=== PATIENT | female | born 1980 | race Hispanic/Latino ===

== ENCOUNTER 2020-05-05 12:28 | Outpatient (CLI) | payer BC, SELFPAY ==
--- NOTE | ~2020-05-05 | XR_ITS ---
EXAMINATION: XR chest 2V EXAM DATE: 05/05/2020 12:49 INDICATION: Other chest pain. Prior history mid to left-sided chest pain. TECHNIQUE: Frontal and lateral projections of the chest obtained and reviewed. Comparison is made to prior examination from 06/24/2019. FINDINGS: The lungs are clear. There are no pleural effusions. The cardiomediastinal silhouette is within normal limits. There is no pneumothorax suspected. The bones and soft tissues are unremarkab le. IMPRESSION: Unremarkable chest x-ray exam. Reviewed, dictated and finalized at location A.
--- NOTE | 2020-05-05 13:09 | ECG_ITS ---
Measurements Intervals [place] Rate: 78 P: 16 CO: 133 QRS: 37 QRSD: 96 T: 30 QT: 379 QTc: 433 Interpretive Statements SINUS RHYTHM NONSPECIFIC T-WAVE ABNORMALITY- ANTERIOR LEADS BORDERLINE ECG Electronically Signed On 05-05-2020 13:32:24 CDT by Sb Clinton D.O.
== END 2020-05-05 12:29 | disposition home or self-care (01) ==
LOC: ANHIMG 12:33
PROVIDERS: PCP Family Medicine; Visit Provider Family Medicine
DX: R07.89 Other chest pain (principal); R94.31 Abnormal electrocardiogram [ECG] [EKG]
CPT/HCPCS: 71046; 93005

== ENCOUNTER 2020-05-28 10:58 | Outpatient (CLI) | payer BC, SELFPAY ==
--- NOTE | 2020-05-28 11:17 | EST_ITS ---
Patient Info Name: Aleshia Lundberg Age: 40 years : 1980 Gender: Female Ht: 62 in Wt: 198 lbs BSA: 2.03 m2 Exam Date: 05/28/2020 11:44 AM Exam Location: [facility] Patient Status: Outpatient Admit Date: 05/28/2020 Staff Ordering Physician: Jalil Davila MD Attending Provider: Jalil Davila MD Exercise Technologist: Rodolfo Edmondson RDCS, RT Exercise Physician: Sb Clinton DO Exam Type: CA stress test treadmill Study Info A treadmill exercise stress test was performed. Summary 1. 1. Negative [place] exercise stress test for ischemic ST changes by ECG criteria. 2. 2. Good functional capacity, achieving 12 METs of workload. 3. 3. Appropriate HR response to exercise. 4. 4. Appropriate HR recovery at 1 minute post exercise. 5. 5. No imaging with stress testing. 6. 6. Patient informed of the above results. Protocol: [place] Stress ECG Details Stage: REST Duration (min): 0 min : 43 sec Speed (mph): 0.0 Grade (%): 0 HR (bpm): 68 SBP (mmHg): 134 DBP (mmHg): 79 METS: --- Stage: REST Duration (min): 4 min : 53 sec Speed (mph): 0.0 Grade (%): 0 HR (bpm): 81 SBP (mmHg): 134 DBP (mmHg): 79 METS: --- Stage: STAGE 1 Duration (min): 1 min : 0 sec Speed (mph): 1.7 Grade (%): 10 HR (bpm): 99 SBP (mmHg): 134 DBP (mmHg): 79 METS: --- Stage: STAGE 1 Duration (min): 2 min : 0 sec Speed (mph): 1.7 Grade (%): 10 HR (bpm): 99 SBP (mmHg): 134 DBP (mmHg): 79 METS: --- Stage: STAGE 1 Duration (min): 3 min : 0 sec Speed (mph): 1.7 Grade (%): 10 HR (bpm): 102 SBP (mmHg): 139 DBP (mmHg): 79 METS: --- Stage: STAGE 2 Duration (min): 1 min : 0 sec Speed (mph): 2.5 Grade (%): 12 HR (bpm): 115 SBP (mmHg): 139 DBP (mmHg): 79 METS: --- Stage: STAGE 2 Duration (min): 2 min : 0 sec Speed (mph): 2.5 Grade (%): 12 HR (bpm): 119 SBP (mmHg): 147 DBP (mmHg): 79 METS: --- Stage: STAGE 2 Duration (min): 3 min : 0 sec Speed (mph): 2.5 Grade (%): 12 HR (bpm): 118 SBP (mmHg): 147 DBP (mmHg): 79 METS: --- Stage: STAGE 3 Duration (min): 1 min : 0 sec Speed (mph): 3.4 Grade (%): 14 HR (bpm): 136 SBP (mmHg): 166 DBP (mmHg): 82 METS: --- Stage: STAGE 3 Duration (min): 2 min : 0 sec Speed (mph): 3.4 Grade (%): 14 HR (bpm): 142 SBP (mmHg): 166 DBP (mmHg): 82 METS: --- Stage: STAGE 3 Duration (min): 3 min : 0 sec Speed (mph): 3.4 Grade (%): 14 HR (bpm): 148 SBP (mmHg): 166 DBP (mmHg): 85 METS: --- Stage: STAGE 4 Duration (min): 1 min : 0 sec Speed (mph): 4.2 Grade (%): 16 HR (bpm): 167 SBP (mmHg): 166 DBP (mmHg): 85 METS: --- Stage: STAGE 4 Duration (min): 1 min : 0 sec Speed (mph): 4.2 Grade (%): 16 HR (bpm):
== END 2020-05-28 10:59 | disposition home or self-care (01) ==
PROVIDERS: PCP Family Medicine; Visit Provider Family Medicine
DX: R07.89 Other chest pain (principal)
CPT/HCPCS: 93017

== ENCOUNTER → 2020-07-30 09:20 | Outpatient (CLI) | payer BC, SELFPAY ==
--- NOTE | ~2020-07-30 | CT_ITS ---
EXAMINATION: CT abdomen pelvis w con DATE: 07/30/2020 10:07 INDICATION: Ventral hernia without obstruction or gangrene TECHNIQUE: Computed tomography (CT) of the abdomen and pelvis was performed without intravenous contr ast. Automated exposure control and iterative reconstruction technique were employed. The dose-length product was 975.58 mGy-cm. COMPARISON: None FINDINGS: Lung bases are clear. Heart size is normal. No pericardial or pleural effusion. Small region of focal hepatic steatosis at the ligamentum teres. Gallbladder, spleen, pancreas and bilateral adrenal gland s are normal. Kidneys enhance symmetrically with no hydronephrosis. There is some early excretion of contrast within the bilateral renal collecting systems and beginning to accumulate in the normal uret ers. Bilateral renal cysts the larger on the left measuring 12 mm. Bladder is normal. T-shaped IUD in expected position within the fundus of the anteverted uterus. 2.0 cm corpus luteum cyst in the right ovary with thin enhancing and crenelated peripheral rim. Left ovary is unremarkable. Diastases of th e supraumbilical and infraumbilical abdominal wall extending 17 cm craniocaudally. There is superimpo sed very small fat-containing umbilical hernia. There are a few scattered sigmoid diverticula without adjacent inflammatory change to suggest diverticulitis. Small bowel and appendix are normal. No free intraperitoneal gas or fluid. No pathologically enlarged abdominal or pelvic lymphadenopathy. Mild u pper lumbar dextrocurvature. 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 IMPRESSION: 1. Ventral diastases with superimposed very small fat-containing umbilical hernia. 2. IUD in expected position within the anteverted uterus and likely partially collapsed 2 cm corpus l uteum cyst at the right ovary. Reviewed, dictated and finalized at location A. IMPRESSION: 1. Ventral diastases with superimposed very small fat-containing umbilical sandeep ia. 2. IUD in expected position within the anteverted uterus and likely partially c ollapsed 2 cm corpus luteum cyst at the right ovary.
== END ==
PROVIDERS: Visit Provider Surgery
DX: K43.9 Ventral hernia without obstruction or gangrene (principal); Z97.5 Presence of (intrauterine) contraceptive device
CPT/HCPCS: 74177; Q9967

== ENCOUNTER 2022-11-08 17:33 | Outpatient (CLI) | payer BC, SELFPAY ==
--- NOTE | ~2022-11-08 | XR_ITS ---
EXAMINATION: XR chest 2V DATE: 11/08/2022 17:48 INDICATION: Chronic cough TECHNIQUE: PA and lateral views of the chest are obtained. COMPARISON: 05/05/2020 FINDINGS: The lungs are free of acute opacities. No pleural effusion or pneumothorax. The cardiomedia stinal silhouette is normal. The visualized bones and soft tissues are unremarkable. IMPRESSION: 1. No acute cardiopulmonary abnormality. Reviewed, dictated and finalized at location L. CE COORDINATOR
== END 2022-11-08 17:34 | disposition home or self-care (01) ==
PROVIDERS: PCP Family Medicine; Visit Provider Family Medicine
DX: R05.3 Chronic cough (principal); U09.9 Post COVID-19 condition, unspecified
CPT/HCPCS: 71046

== ENCOUNTER 2022-11-09 14:55 | Outpatient (CLI) | payer BC, SELFPAY ==
--- NOTE | ~2022-11-09 | MM_ITS ---
EXAMINATION: MM screening connor BI w patti HISTORY: Screening TECHNIQUE: Craniocaudal and mediolateral oblique 3-D tomosynthesis images were obtained and synthetic 2-D images were generated. CAD analysis was submitted and interpreted. COMPARISON: No prior mammogram is available for comparison at this institution. BREAST PARENCHYMAL COMPOSITION: The breasts are heterogeneously dense, which may obscure small masses . FINDINGS: There is focal asymmetry in the lower inner quadrant of the left breast. No mammographic ev idence for malignancy in the right breast. IMPRESSION: 1. Focal left breast asymmetry. 2. Additional mammographic views and possible breast ultrasound are recommended. BI-RADS Category 0: Incomplete: Needs additional imaging evaluation. Reviewed, dictated and finalized at location A. OR TALENT ACQUISITION SPECIALIST IMPRESSION: 1. Focal left breast asymmetry. 2. Additional mammographic views and possible breast ultrasound are recommended . BI-RADS Category 0: Incomplete: Needs additional imaging evaluation.
== END 2022-11-09 14:56 | disposition home or self-care (01) ==
PROVIDERS: PCP Family Medicine
DX: Z12.31 Encounter for screening mammogram for malignant neoplasm of breast (principal); R92.8 Other abnormal and inconclusive findings on diagnostic imaging of breast
CPT/HCPCS: 77063; 77067

== ENCOUNTER 2022-12-01 13:14 | Outpatient (CLI) | payer BC, SELFPAY ==
--- NOTE | ~2022-12-01 | MMUS_ITS ---
EXAMINATION: MM diagnostic connor LT w patti, US breast LT complete HISTORY: Focal asymmetry reported in lower inner quadrant of left breast on 11/09/2022 screening mammo gram TECHNIQUE: Additional 3-D tomosynthesis images of the left breast were performed and synthetic 2-D im ages were generated. CAD analysis was submitted and interpreted. High resolution complete left breast ultrasound examinations including all 4 quadrants and subareolar area was performed. COMPARISON: 11/09/2022 screening mammogram examination FINDINGS: MAMMOGRAPHIC FINDINGS: No suspicious reproducible mass is evident. No architectural distortion. No malignant calcification, skin thickening or retraction is detected. ULTRASOUND: No suspicious mass, shadowing, cyst or other significant sonographic abnormality of the left breast i s detected. IMPRESSION: 1. No mammographic evidence of malignancy 2. Routine annual mammographic screening is recommended BI-RADS Category 1: Negative Reviewed, dictated and finalized at location A. ERCIAL ACCOUNTANT IMPRESSION: 1. No mammographic evidence of malignancy 2. Routine annual mammographic screening is recommended BI-RADS Category 1: Negative
== END 2022-12-01 13:15 | disposition home or self-care (01) ==
LOC: ANHIMG 13:19
PROVIDERS: PCP Family Medicine
DX: R92.2 Inconclusive mammogram (principal)
CPT/HCPCS: 76641; 77061; 77065; G0279

== ENCOUNTER 2024-01-31 14:48 | Outpatient (CLI) | payer BC, SELFPAY ==
--- NOTE | ~2024-01-31 | MM_ITS ---
EXAMINATION: MM screening connor BI w patti HISTORY: Screening mammogram TECHNIQUE: Craniocaudal and mediolateral oblique 3-D tomosynthesis images were obtained and synthetic 2-D images were generated. CAD analysis was submitted and interpreted. COMPARISON: December 01, 2022 diagnostic left mammogram and complete left breast ultrasound November 09, 2022 bilateral screening mammogram BREAST PARENCHYMAL COMPOSITION: The breasts are heterogeneously dense, which may obscure small masses . FINDINGS: There is no evidence of suspicious mass, calcification, or architectural distortion to sugg est malignancy in either breast. There has been no suspicious interval change. IMPRESSION: 1. No mammographic evidence of malignancy. 2. Recommend routine screening mammography in one year. BI-RADS Category 1: Negative Reviewed, dictated and finalized at location A.
== END 2024-01-31 14:49 | disposition home or self-care (01) ==
LOC: ANHIMG 14:55
PROVIDERS: PCP Family Medicine; Visit Provider Family Medicine
DX: Z12.31 Encounter for screening mammogram for malignant neoplasm of breast (principal)
CPT/HCPCS: 77063; 77067

== ENCOUNTER 2025-02-12 14:19 | Outpatient (CLI) | payer OTHER, SELFPAY ==
--- NOTE | ~2025-02-12 | MM_ITS ---
EXAMINATION: MM screening connor BI w patti HISTORY: Screening TECHNIQUE: Craniocaudal and mediolateral oblique 3-D tomosynthesis images were obtained and synthetic 2-D images were generated. CAD analysis was submitted and interpreted. COMPARISON: Comparison to multiple prior studies sequentially, with oldest reviewed study dated 11/09. BREAST PARENCHYMAL COMPOSITION: Dense: The breasts are heterogeneously dense, which may obscure small masses FINDINGS: There is a focal asymmetry in the lateral aspect of the left breast, middle third, only on CC view. The right breast is stable without evidence for malignancy. IMPRESSION: 1. Focal left breast asymmetry laterally on CC view, middle third. 2. Additional mammographic views and possible breast ultrasound are recommended. BI-RADS Category 0: Incomplete: Needs additional imaging evaluation. Reviewed, dictated and finalized at location A. IMPRESSION: 1. Focal left breast asymmetry laterally on CC view, middle third. 2. Additional mammographic views and possible breast ultrasound are recommended . BI-RADS Category 0: Incomplete: Needs additional imaging evaluation.
--- OUTSIDE RECORDS SUMMARY | 2025-02-12 14:24 | XMS_ITS | Clinical Summary ---
Author Organization [facility] Address [address] [place] [address] Care Team Providers Care Shingle Weaver Name Role Phone Jalil Davila MD Primary Care Provider [phone] Source Comments [facility],non-owned Affiliates and Associated Physician Practices is amultiple site organization consisting of ambulatory clinics and hospital sitesin [place], [place], [place] and [place]. This disclosure is being madepursuant to the Care Everywhere program and may not contain all information available regarding this patient. Last updated 18.[facility] [employer] Allergies No known active allergies Medications * Be aware that medications may not be up to date on this document. Alwaysverify current medications with the patient. 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 SPECIALIST Gender Identity Female 03/08/2023 9:55 AM CDT Sexual Orientation Not on file Last Filed Vital Signs Vital Sign Reading Time Taken Comments Blood Pressure 127/85 03/08/2023 10:02 AM CDT Pulse 82 03/08/2023 10:02 AM CDT Temperature 36.8 C (98.3 F) 03/08/2023 10:02 AM CDT Respiratory Rate 16 02/15/2023 1:00 PM CDT Oxygen Saturation 98% 03/08/2023 10:02 AM CDT Inhaled Oxygen Concentration - - Weight 91.9 kg (202 lb 9.6 oz) 03/08/2023 10:02 AM CDT Height 157.5 cm (5' 2 ) 03/08/2023 10:02 AM CDT Body Mass Index 37.06 03/08/2023 10:02 AM CDT Plan of Treatment Health Maintenance Due Date Last Done Comments COLOGUARD (AGES 45-75) - COL ON CA SCREENING 1980 COLON MONITORING 1980 COLONOSCOPY - COLON CA SCREENING 1980 CT COLONOGRAPHY - COLON CA SCREENING 1980 Colorectal Cancer Screening 1980 FIT - COLON CA SCREENING 1980 FLEX SIG - COLON CA SCREENING 1980 LIPID TESTING 1980 MAMMOGRAM 1980 PAP SMEAR 1980 HIV SCREENING 01/31/1995 HEPATITIS C SCREENING 01/27/1998 DTAP/TDAP/TD VACCINES (1 - Tdap) 01/31/1999 HEPATITIS B VACCINE (1 of 3 - 19+ 3-dose series) 01/31/1999 SCREENING FOR DIABETES 12/16/2022 COVID-19 VACCINE (1 - 2023-2 5 season) 2024 DEPRESSION SCREENING 10/10/2024 INFLUENZA VACCINE (Season Ended) 2025 ZOSTER VACCINE (1 of 2) 01/31/2030 HIB VACCINE Aged Out No longer eligi ble based on patient's age to complete this topic HPV VACCINE Aged Out No longer eligi ble based on patient's age to complete this topic MENINGOCOCCAL (Group B) VACC INE SHARED DECISION-MAKING Aged Out No longer eligibl e based on patient's age to complete this topic MENINGOCOCCAL GROUPS A/C/Y/W VACCINE Aged Out No longer eligible b ased on patient's age to complete this topic PNEUMOCOCCAL VACCINE Aged Out No long er eligible based on patient's age to complete this topic Insurance ANTHEM ANTHEM Care Teams Shingle Weaver Relationship Specialty Start Date End Date Jalil Davila MD [address] [place] [address] PCP - General 11/03/22
--- OUTSIDE RECORDS SUMMARY | 2025-02-12 14:24 | XMS_ITS | Patient Health Record ---
Author Organization [facility] [place] ([address]) Address [address] [place] [phone] Care Team Providers Care Timing Inspector Name Role Phone Chris Bee [phone] Reason For Referral No Information Problems Problem Type SNOMED Code ICD Code Onset Dates Problem Status W/U Status Risk Notes Problem Morbid obesity (disorder) (839465832) Morbid (severe) obesity due to excess calories (E66.01) Active confirmed Problem Chronic fatigue syndrome (disorder) (54011290) Chronic fatigue, unspecified (R53.82) Active confirmed Vital Signs Height 60.6 in 09/05/2024 Weight 175.8 lbs 09/05/2024 BMI 33.65 kg/m2 09/05/2024 Encounters Encounter Location Date Provider Diagnosis [facility] ([address]) [address] [place] [phone] 06/20/2024 Chris Bee Morbid (severe) obesity due to excess calories E66.01 and Chronic fatigue, unspecified R53.82 [facility]ly [facility] ([address]) [address] [place] [phone] 07/04/2024 Chris Bee Morbid (severe) obesity due to excess calories E66.01 and Chronic fatigue, unspecified R53.82 [facility] ([address]) [address] [place] [phone] 07/26/2024 Chris Bee Morbid (severe) obesity due to excess calories E66.01 and Chronic fatigue, unspecified R53.82 [facility] ([address]) [address] [place] [phone] 08/08/2024 Chris Rohit Morbid (severe) obesity due to excess calories E66.01 and Chronic fatigue, unspecified R53.82 [facility] ([address]) [address] [place] [address] 08/22/2024 Chris Rohit Morbid (severe) obesity due to excess calories E66.01 and Chronic fatigue, unspecified R53.82 [facility] ([address]) [address] [place] [address] 02/15/2024 Chris Rohit Morbid (severe) obesity due to excess calories E66.01 ; Chronic fatigue, unspecified R53.82 ; Other fatigue R53.83 and Other malaise R53.81 [facility] ([address]) [address] [place] [address] 02/15/2024 Chris Rohit [facility] ([address]) [address] [place] [address] 02/22/2024 Chris Bee Morbid (severe) obesity due to excess calories E66.01 ; Chronic fatigue, unspecified R53.82 ; Other fatigue R53.83 and Other malaise R53.81 [facility] ([address]) [address] [place] [address] 02/29/2024 Chris Bee Morbid (severe) obesity due to excess calories E66.01 ; Chronic fatigue, unspecified R53.82 ; Other fatigue R53.83 and Other malaise R53.81 [facility] ([address]) [address] [place] [phone] 03/07/2024 Chris Win Morbid (severe) obesity due to excess calories E66.01 ; Chronic fatigue, unspecified R53.82 ; Other fatigue R53.83 and Other malaise R53.81 [facility] ([address]) [address] [place] [address] 03/14/2024 Chris Win Morbid (severe) obesity due to excess calories E66.01 ; Chronic fatigue, unspecified R53.82 ; Other fatigue R53.83 and Other malaise R53.81 [facility] ([address]) [address] [place] [address] 03/21/2024 Chris Rohit Morbid (severe) obesity due to excess calories E66.01 ; Chronic fatigue, unspecified R53.82 ; Other fatigue R53.83 and Other malaise R53.81 [facility] ([address]) [address] [place] [address] 03/28/2024 Crhis Rohit Morbid (severe) obesity due to excess calories E66.01 ; Chronic fatigue, unspecified R53.82 ; Other fatigue R53.83 and Other malaise R53.81 [facility] ([address]) [address] [place] [address] 03/28/2024 Chris Rohit [facility] ([address]) [address] [place] [address] 04/11/2024 Chrisjudson Bee Morbid (severe) obesity due to excess calories E66.01 ; Chronic fatigue, unspecified R53.82 ; Other fatigue R53.83 and Other malaise R53.81 [facility] ([address]) [address] [place] [address] 04/18/2024 Chris Rohit Morbid (severe) obesity due to excess calories E66.01 ; Chronic fatigue, unspecified R53.82 ; Other fatigue R53.83 and Other malaise R53.81 [facility] ([address]) [address] [place] [address] 04/25/2024 Chris Win Morbid (severe) obesity due to excess calories E66.01 ; Chronic fatigue, unspecified R53.82 ; Other fatigue R53.83 and Other malaise R53.81 [facility] ([address]) [address] [place] [address] 05/02/2024 Chris Win Morbid (severe) obesity due to excess calories E66.01 ; Chronic fatigue, unspecified R53.82 ; Other fatigue R53.83 and Other malaise R53.81 [facility] ([address]) [address] [place] [address] 05/09/2024 Chris Win Morbid (severe) obesity due to excess calories E66.01 ; Chronic fatigue, unspecified R53.82 ; Other fatigue R53.83 and Other malaise R53.81 [facility] ([address]) [address] [place] [address] 05/16/2024 Chris Win Morbid (severe) obesity due to excess calories E66.01 ; Chronic fatigue, unspecified R53.82 ; Other fatigue R53.83 and Other malaise R53.81 [facility] ([address]) [address] [place] [address] 05/23/2024 Chris Win Morbid (severe) obesity due to excess calories E66.01 ; Chronic fatigue, unspecified R53.82 ; Other fatigue R53.83 and Other malaise R53.81 [facility] ([address]) [address] [place] [address] 05/30/2024 Chris Win Morbid (severe) obesity due to excess calories E66.01 ; Chronic fatigue, unspecified R53.82 ; Other fatigue R53.83 and Other malaise R53.81 [facility] ([address]) [address] [place] [address] 06/06/2024 Chris Win Morbid (severe) obesity due to excess calories E66.01 ; Chronic fatigue, unspecified R53.82 ; Other fatigue R53.83 and Other malaise R53.81 [facility] ([address]) [address] [place] [address] 09/05/2024 Chris Win Morbid (severe) obesity due to excess calories E66.01 and Chronic fatigue, unspecified R53.82 Assessments Encounter Date Diagnosis (ICD Code) Assessment Notes Treatment Notes Treatment Clinical Notes Section Notes 02/15/2024 Morbid (severe) obesity due to excess calories (ICD-10 - E66.01) 02/15/2024 Chronic fatigue, unspecified (ICD-10 - R53.82) 02/22/2024 Morbid (severe) obesity due to excess calories (ICD-10 - E66.01) 02/22/2024 Chronic fatigue, unspecified (ICD-10 - R53.82) 02/29/2024 Morbid (severe) obesity due to excess calories (ICD-10 - E66.01) 02/29/2024 Chronic fatigue, unspecified (ICD-10 - R53.82) 03/07/2024 Morbid (severe) obesity due to excess calories (ICD-10 - E66.01) 03/07/2024 Chronic fatigue, unspecified (ICD-10 - R53.82) 03/14/2024 Morbid (severe) obesity due to excess calories (ICD-10 - E66.01) 03/14/2024 Chronic fatigue, unspecified (ICD-10 - R53.82) 03/21/2024 Morbid (severe) obesity due to excess calories (ICD-10 - E66.01) 03/21/2024 Chronic fatigue, unspecified (ICD-10 - R53.82) 03/28/2024 Morbid (severe) obesity due to excess calories (ICD-10 - E66.01) 03/28/2024 Chronic fatigue, unspecified (ICD-10 - R53.82) 04/11/2024 Morbid (severe) obesity due to excess calories (ICD-10 - E66.01) 04/11/2024 Chronic fatigue, unspecified (ICD-10 - R53.82) 04/18/2024 Morbid (severe) obesity due to excess calories (ICD-10 - E66.01) 04/18/2024 Chronic fatigue, unspecified (ICD-10 - R53.82) 04/25/2024 Morbid (severe) obesity due to excess calories (ICD-10 - E66.01) 04/25/2024 Chronic fatigue, unspecified (ICD-10 - R53.82) 05/02/2024 Morbid (severe) obesity due to excess calories (ICD-10 - E66.01) 05/02/2024 Chronic fatigue, unspecified (ICD-10 - R53.82) 05/09/2024 Morbid (severe) obesity due to excess calories (ICD-10 - E66.01) 05/09/2024 Chronic fatigue, unspecified (ICD-10 - R53.82) 05/16/2024 Morbid (severe) obesity due to excess calories (ICD-10 - E66.01) 05/16/2024 Chronic fatigue, unspecified (ICD-10 - R53.82) 05/23/2024 Morbid (severe) obesity due to excess calories (ICD-10 - E66.01) 05/23/2024 Chronic fatigue, unspecified (ICD-10 - R53.82) 05/30/2024 Morbid (severe) obesity due to excess calories (ICD-10 - E66.01) 05/30/2024 Chronic fatigue, unspecified (ICD-10 - R53.82) 06/06/2024 Morbid (severe) obesity due to excess calories (ICD-10 - E66.01) 06/06/2024 Chronic fatigue, unspecified (ICD-10 - R53.82) 06/20/2024 Morbid (severe) obesity due to excess calories (ICD-10 - E66.01) 06/20/2024 Chronic fatigue, unspecified (ICD-10 - R53.82) 07/04/2024 Morbid (severe) obesity due to excess calories (ICD-10 - E66.01) 07/04/2024 Chronic fatigue, unspecified (ICD-10 - R53.82) 07/26/2024 Morbid (severe) obesity due to excess calories (ICD-10 - E66.01) 07/26/2024 Chronic fatigue, unspecified (ICD-10 - R53.82) 08/08/2024 Morbid (severe) obesity due to excess calories (ICD-10 - E66.01) 08/08/2024 Chronic fatigue, unspecified (ICD-10 - R53.82) 08/22/2024 Morbid (severe) obesity due to excess calories (ICD-10 - E66.01) 08/22/2024 Chronic fatigue, unspecified (ICD-10 - R53.82) 09/05/2024 Morbid (severe) obesity due to excess calories (ICD-10 - E66.01) 09/05/2024 Chronic fatigue, unspecified (ICD-10 - R53.82) 06/06/2024 Other fatigue (ICD-10 - R53.83) 05/30/2024 Other fatigue (ICD-10 - R53.83) 05/23/2024 Other fatigue (ICD-10 - R53.83) 05/16/2024 Other fatigue (ICD-10 - R53.83) 05/09/2024 Other fatigue (ICD-10 - R53.83) 05/02/2024 Other fatigue (ICD-10 - R53.83) 04/25/2024 Other fatigue (ICD-10 - R53.83) 04/18/2024 Other fatigue (ICD-10 - R53.83) 04/11/2024 Other fatigue (ICD-10 - R53.83) 03/28/2024 Other fatigue (ICD-10 - R53.83) 03/21/2024 Other fatigue (ICD-10 - R53.83) 03/14/2024 Other fatigue (ICD-10 - R53.83) 03/07/2024 Other fatigue (ICD-10 - R53.83) 02/29/2024 Other fatigue (ICD-10 - R53.83) 02/22/2024 Other fatigue (ICD-10 - R53.83) 02/15/2024 Other fatigue (ICD-10 - R53.83) 02/15/2024 Other malaise (ICD-10 - R53.81) 02/22/2024 Other malaise (ICD-10 - R53.81) 02/29/2024 Other malaise (ICD-10 - R53.81) 03/07/2024 Other malaise (ICD-10 - R53.81) 03/14/2024 Other malaise (ICD-10 - R53.81) 03/21/2024 Other malaise (ICD-10 - R53.81) 03/28/2024 Other malaise (ICD-10 - R53.81) 04/11/2024 Other malaise (ICD-10 - R53.81) 04/18/2024 Other malaise (ICD-10 - R53.81) 04/25/2024 Other malaise (ICD-10 - R53.81) 05/02/2024 Other malaise (ICD-10 - R53.81) 05/09/2024 Other malaise (ICD-10 - R53.81) 05/16/2024 Other malaise (ICD-10 - R53.81) 05/23/2024 Other malaise (ICD-10 - R53.81) 05/30/2024 Other malaise (ICD-10 - R53.81) 06/06/2024 Other malaise (ICD-10 - R53.81) Plan Of Treatment No Information
--- OUTSIDE RECORDS SUMMARY | 2025-02-12 14:24 | XMS_ITS ---
Author Organization [facility] ([address]) Address [address] [place] [address] Care Team Providers Care Distribution A Class Lineman Name Role Phone Rohit Chris Unavailable [phone] REASON FOR VISIT [facility], on tirzepatide, reports better appetite suppression over the last 2 weeks, no side effects., Desired weight loss: 30 lbs, -2.8 lbs since last visit (2 weeks ago), -8 lbs total, No history MTC or MEN2 or pancreatitis, Concerned about future DM and OA Encounters Encounter Location Date Provider Diagnosis [facility] ([address]) [address] [place] [address] 09/19/2024 Chris Bee Morbid (severe) obesity due to excess calories E66.01 and Chronic fatigue, unspecified R53.82 Assessments Encounter Date Diagnosis (ICD Code) Assessment Notes Treatment Notes Treatment Clinical Notes Section Notes 09/19/2024 Morbid (severe) obesity due to excess calories (ICD-10 - E66.01) 09/19/2024 Chronic fatigue, unspecified (ICD-10 - R53.82) Plan Of Treatment Next Appt Details Follow Up: 1 Week, Reason: G LP-1 Agonist Administration Procedure Notes * Category Sub-Category Detail Notes Quell: Weight Management tirzepatide Indication: weig ht loss Concentration: 10 mg/mL Volume Administered: 0.6 mL Dose Administered: 6 mg Route: SQ Location: [facility] Frequency: weekly Lot Number/Expiration: Medication Source: Nutraceutical Comp ounding Adverse Reaction: None Progress Notes * Aleshia LUNDBERGDOB: [birth year] (45 yo F)Acc No.[id number]:09/19/2024 Weight Loss Patient: Aleshia CASAREZ Provider: Jcarlos Bee MD :1980 A ge:44 Y S ex:Female Date:09/19/2024 Address:[facility] [address] , [place] [address] Subjective: * Chief Complaints: * 1 . [facility], on tirzepatide, reports better appetite suppression over the last 2 weeks, no side effects.. 2. Desired weight loss: 30 lbs, -2.8 lbs since last visit (2 weeks ago), -8 lbs total. 3. No history MTC or MEN2 or pancreatitis. 4. Concerned about future DM and OA. * Medical History: Objective: * Vitals: Assessment: * Assessment: 1. M orbid (severe) obesity due to excess calories - E66.01 (Primary) 2 . C hronic fatigue, unspecified - R53.82 Plan: * Treatment: * Procedures: Q uell: Weight Management: tirzepatide I ndication w eight loss C oncentration 1 0 mg/mL V olume Administered 0 .6 mL D ose Administered 6 mg R oute S Q L ocation L UA F requency w eekly L ot Number/Expiration 0 -2024 M edication Source A H Nutraceutical Compounding A dverse Reaction N one * Follow Up: 1 Week (Reason: GLP-1 Agonist Administration) * Billing Information: * Visit Code: * Procedure Codes: 80209 Quell - Weekly (tirzepatide) Tier 2. * Electronic signature of Rickie Bee MD, FAAAAI on 02/12/2025 at 02:24 PM CDT Sign off status: Pending * Provider: Jcarlos Bee MD Date: 1 11/20/2023 Generated for Keyanai ng/Todd/eTransmitting on: 0 02/12/2025 02:24 PM CDT
--- OUTSIDE RECORDS SUMMARY | 2025-02-12 14:24 | XMS_ITS ---
Author Organization [facility] Address [address] [address] Care Team Providers Care Director Of Marketing Name Role Phone Chris Bee [phone] REASON FOR VISIT In[facility] Follow-up Encounters Encounter Location Date Provider Diagnosis [facility] ([address]) [address] [place] [address] 09/05/2024 Chris Bee Plan Of Treatment No Information Progress Notes * Aleshia LUNDBERGDOB: [birth year] (45 yo F)Acc No.[id number]:09/05/2024 InBody Follow-up Patient: Aleshia CASAREZ Provider: Jcarlos Bee MD :1980 A ge:44 Y S ex:Female Date:09/05/2024 [facility] Subjective: * Chief Complaints: * 1 . InBody Follow-up. * Medical History: Objective: * Vitals: Assessment: Plan: * Treatment: * Billing Information: * Visit Code: * Procedure Codes: * Electronic signature of Rickie Bee MD, FAAAAI on 02/12/2025 at 02:24 PM CDT Sign off status: Pending * Provider: Jcarlos Bee MD Date: 11/05/2023 Generated for Printi ng/Faxing/eTransmitting on: 0 02/12/2025 02:24 PM CDT
--- OUTSIDE RECORDS SUMMARY | 2025-02-12 14:24 | XMS_ITS ---
Author Organization [facility] ([address]) Address [address] [place] [address] Care Team Providers Care Roller Coaster Engineer Name Role Phone Chris Bee [phone] REASON FOR VISIT [facility], on tirzepatide, reports better appetite suppression over the last 2 weeks, no side effects., Desired weight loss: 30 lbs, -2.8 lbs since last visit (2 weeks ago), -8 lbs total, No history MTC or MEN2 or pancreatitis, Concerned about future DM and OA Vital Signs Height 60.6 in 09/05/2024 Weight 175.8 lbs 09/05/2024 BMI 33.65 kg/m2 09/05/2024 Encounters Encounter Location Date Provider Diagnosis [facility] ([address]) [address] [place] [address] 09/05/2024 Chris Bee Morbid (severe) obesity due to excess calories E66.01 and Chronic fatigue, unspecified R53.82 Assessments Encounter Date Diagnosis (ICD Code) Assessment Notes Treatment Notes Treatment Clinical Notes Section Notes 09/05/2024 Morbid (severe) obesity due to excess calories (ICD-10 - E66.01) 09/05/2024 Chronic fatigue, unspecified (ICD-10 - R53.82) Plan Of Treatment Next Appt Details Follow Up: 1 Week, Reason: G LP-1 Agonist Administration Procedure Notes * Category Sub-Category Detail Notes Quell: Weight Management tirzepatide Indication: weig ht loss Concentration: 10 mg/mL Volume Administered: 0.6 mL Dose Administered: 6 mg Route: SQ Location: [facility] Frequency: weekly Lot Number/Expiration: 12-2024 Medication Source: Nutraceutical Comp ounding Adverse Reaction: None Progress Notes * Aleshia LUNDBERGDOB: [birth year] (44 yo F)Acc No.[id number]:09/05/2024 Weight Loss Patient: Aleshia CASAREZ Provider: Jcarlos Bee MD :1980 A ge:44 Y S ex:Female Date:09/05/2024 Address:[address] [place] [address] [place] [address] Subjective: * Chief Complaints: * [facility], on tirzepatide, reports better appetite suppression over the last 2 weeks, no side effects.Desired weight loss: 30 lbs, -2.8 lbs since last visit (2 weeks ago), -8 lbs totalNo history MTC or MEN2 or pancreatitisConcerned about future DM and OA * Medical History: * Surgical History: * Hospitalization/Major Diagno stic Procedure: * Medications: Objective: * Vitals: H t: 60.6 in, Wt: 175.8 lbs, BMI:33.65Index. Assessment: * Assessment: 1. M orbid (severe) [...] F requency w eekly L ot Number/Expiration 1 M edication Source A H Nutraceutical Compounding A dverse Reaction N one * Procedure Codes: 0 0091 Quell - Weekly (tirzepatide) Tier 2 * Follow Up: 1 Week (Reason: GLP-1 Agonist Administration) * Billing Information: * Visit Code: * Procedure Codes: 10474 Quell - Weekly (tirzepatide) Tier 2. * STORE MARKETER Sign off status: Completed true * Provider: Jcarlos Bee MD Date: 11/05/2023 Generated for Mayela mendoza/Todd/Torstenitting on: 0 02/12/2025 02:24 PM CDT
--- OUTSIDE RECORDS SUMMARY | 2025-02-12 14:24 | XMS_ITS | Clinical Summary ---
Author Organization [facility] Address [address] [place], [place] [id number] Care Team Providers Care Bulk Plant Supervisor Name Role Phone Unavailable Primary Care Provider Unavailabl e Social History Tobacco Use Types Packs/Day Years Used Date Smoking Tobacco: Never Assessed Comments Unknown Sex and Gender Information Value Date Recorded Sex Assigned at Not on file Legal Sex Female 6:28 PM CDT Gender Identity Not on file Sexual Orientation Not on file Plan of Treatment Health Maintenance Due Date Last Done Comments Cervical Cancer Screening Pa p Smear (Age 30 to 64) Every 3 Years 1980 Colorectal Cancer Screening Colonoscopy (10 Years) 1980 Annual Physical 01/31/1983 Hepatitis C 01/31/1998 DTaP, Tdap and Td Vaccines ( 1 - Tdap) 01/31/1999 Hepatitis B Vaccines (1 of 3 - 19+ 3-dose series) 01/31/1999 Cervical Cancer Screening Pa p with HPV Testing (Age 30 to 64) Every 5 Years 01/31/2010 Cervical Cancer Screening with HPV 01/31/2010 Mammogram Screening 2020 COVID-19 Vaccine (2023-2 5 season) 2024 HPV Vaccines Aged Out No longer eligi ble based on patient's age to complete this topic Meningococcal B Vaccine Aged Out No l onger eligible based on patient's age to complete this topic Meningococcal Vaccine Aged Out No veronica sherry eligible based on patient's age to complete this topic Pneumococcal Vaccine: Pediat rics (0 to 5 Years) and At-Risk Patients (6 to 49 Years) Aged Out No longer eligible b ased on patient's age to complete this topic RSV Immunizations Under 20 Months Aged Out No longer eligible based on patient's age to complete this topic
--- OUTSIDE RECORDS SUMMARY | 2025-02-12 14:24 | XMS_ITS | Continuity of Care Document ---
Author Organization [facility] Address [address] [place] [address] Phone Care Team Providers Care Handkerchief Maker Name Role Phone Liana Ortiz Unavailable Advance Directives Directive Yes / No Effective Date File Name No Information Encounters Encounter Description Practice Location Reason(s) For Visit Diagnoses Date Provider Providers Copied on Encounter [facility], [address], [place], [place], [id number], [place] tel:[phone] [facility] No Information Sep-0 9-200 5 Diana Gaines. [address] , [address], [place], [address], [place]. tel:[phone] Referring Provider: Puja Boucher MD, [address] [place] [address], [address]. tel:[phone] Family History Family Member Type Diagnosis Age At Onset No Information Payers Payer name Insurance type Covered alliance party ID Authoriza tion(s) Medicaid [facility] [id number] Social History Type Description Quantity Date Captured Comments Sex Female Smoking Status No Information Chief Complaint And Reason For Visit No Information Reason For Referral Reason For Referral No Information History Of Present Illness Encounter Date Complaint History Of Prese nt Illness No Information Functional Status Date Functional Assessmen t No Information Instructions Date Instruction Additional Infor mation No Information Assessments Type Assessment Date No Information Patient Care Teams Name Effective Dates (start - stop) Status Members No Information
--- OUTSIDE RECORDS SUMMARY | 2025-02-12 14:25 | XMS_ITS | Data Portability ---
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 Plan of Treatment Reminders Order Date Submit Date Provider Last Modified By Organization Details Last Modified Time Details Appointments None recorded. Lab HPV E6+E7 mRNA, qualitative PCR, cervix 2024 025 [facility] [facility], [address] [place], [address], 5 14:52:56 pap, LB 2024 025 [facility], [address] [place], [address], 5 12:42:03 HPV E6+E7 mRNA, qualitative PCR, cervix 2023 024 [employer] [facility], [address] [place], [address], 4 09:23:45 pap, LB 2023 024 [facility], [address] [place], [address], 4 12:08:43 HPV E6+E7 mRNA, qualitative PCR, cervix 2022 023 [email or web address] [facility], [address] [place], [address], 3 17:30:07 pap, LB 2022 023 [facility], [address], [place], [address], 3 23:39:03 pap, LB 2021 022 [facility], [address], [place], [address], 2 12:21:01 HPV E6+E7 mRNA, qualitative PCR, cervix 2021 022 [facility], [address] [place], [address], 2 15:02:59 Referral None recorded. Procedures None recorded. Surgeries None recorded. Imaging MAMMO, screening, digital, bilateral 2024 025 [facility] ([facility]), [address] [place] [address], [phone], 5 10:30:36 MAMMO, screening, digital, bilateral [address] ([facility]), [address] [place] [address], [phone], 4 11:33:33 MAMMO, screening, digital, bilateral 2021 022 [place] [id number] Not available 2 13:22:22 Medication Orders None recorded. Patient TargetsNo targets recorded. Patient Instructions Encounter Date Encounter Id Patient Instructions Last Modified By Organization Details Last Modified Time 11/24/2021 [id number] eating healthy foods: care instructions Not available 11/24/2021 15:35:25 weight managemen t education Not available 11/24/2021 15:35:25 mammogram: about this test Not available 11/24/2021 15:35:25 12/21/2022 [id number] Patient Health Questionnaire-9* ckabat Not available 12/22/2022 14:53:40 12/27/2023 [id number] eating healthy foods: care instructions Not available 12/27/2023 12:22:48 general health care education Not available 12/27/2023 12:22:48 body mass index: care instructions Not available 12/27/2023 12:22:48 mammogram: about this test Not available 12/27/2023 12:22:48 12/25/2024 [id number] Patient Health Questionnaire-9* kbritsch Not available 12/25/2024 16:23:13 eating healthy foods: care instructions Not available 12/25/2024 10:29:53 general health care education Not available 12/25/2024 10:29:53 body mass index: care instructions Not available 12/25/2024 10:29:53 mammogram: about this test Not available 12/25/2024 10:29:53 Reason for Referral None Reported. Results Created Date Observation Date Name Description Value Unit Range Abnormal Flag Note LastModifiedBy Organization Detail LastModifiedTime 11/24/19 22 11/26/2021 HPV HIGH RISK HPV high risk Negati ve negati ve The HPV High Risk assay is inten ded for use as co-te sting with cytol ogy and not as a subst itute for regul ar cervi mera cytol ogy scree jose. This assay is not inten ded for use as a scree jose devic e for women under age 30 with andie l cervi mera cytol ogy. Not Available [facility] [address] [place], [address], 11/26/2021 15:02:59 11/24/19 22 11/30/2021 THINP REP TIS PAP clinical information: normal Infor matio n not provi ded Not Available [facility] [address] [place], [address], 11/30/2021 12:21:01 11/24/19 22 11/30/2021 THINP REP TIS PAP LMP: normal NONE GIVEN Not Available [facility] [address] [place], [address], 11/30/2021 12:21:01 11/24/19 22 11/30/2021 THINP REP TIS PAP prev. Pap: normal NONE GIVEN Not Available [address], [address], 11/30/2021 12:21:01 11/24/19 22 11/30/2021 THINP REP TIS PAP prev. BX: normal NONE GIVEN Not Available [address], [address], 11/30/2021 12:21:01 11/24/19 22 11/30/2021 THINP REP TIS PAP source: normal None given Not Available [address], [address], 11/30/2021 12:21:01 11/24/19 22 11/30/2021 THINP REP TIS PAP statement of adequacy: normal Satis facto ry for evalu ation . Endoc ervic al/tr ansfo rmati on zone compo nent prese nt. Age and/o r menst rual statu s not provi ded Not Available [address], [address], 11/30/2021 12:21:01 11/24/19 22 11/30/2021 THINP REP TIS PAP interpretati on/result: normal Negat ga for intra epith elial lesio n or opal prajapati . Not Available [address], [address], 11/30/2021 12:21:01 11/24/19 22 11/30/2021 THINP REP TIS PAP comment: normal This Pap test has been evalu ated with compu ter adrianne jeannette techn ology . Not Available [address], [address], 11/30/2021 12:21:01 11/24/19 22 11/30/2021 THINP REP TIS PAP cytotechnolo gist: normal MLO, CT( CP) CT scree jose locat ion: [facility] [address] [place] [address] Not Available [facility] [address] [place], [address], 11/30/2021 12:21:01 11/24/19 22 11/30/2021 THINP REP TIS PAP review cytotechnolo gist: normal LYLE, CT( CP) CT Scree jose locat ion: [id number] [place] [address] Not Available [facility] [address] [place], [address], 11/30/2021 12:21:01 11/24/19 22 11/30/2021 THINP REP TIS PAP comment EXPLA NATOR Y NOTE: The Pap is a scree jose test for cervi mera cance r. It is not a diagn ostic test and is subje ct to false negat ga and false posit ga resul ts. It is most relia ble when a satis facto ry sampl e, regul rosalie obtai marisol, is submi tted with relev ant clini mera findi ngs and histo ry, and when the Pap resul t is evalu ated along with histo lexi and curre nt clini mera infor matio n. Not Available [facility] [address], [place], [address], 11/30/2021 12:21:01 12/22/19 23 12/23/2022 HPV HIGH RISK HPV high risk Negati ve negati ve normal The HPV High Risk assay is inten ded for use as co-te sting with cytol ogy and not as a subst itute for regul ar cervi mera cytol ogy scree jose. This assay is not inten ded for use as a scree jose devic e for women under age 30 with andie l cervi mera cytol ogy. Not Available [facility] [address] [place], [address], 12/23/2022 14:48:32 12/22/19 23 12/28/2022 THINP REP TIS PAP clinical information: normal None given Not Available [address], [address], 12/28/2022 23:39:03 12/22/19 23 12/28/2022 THINP REP TIS PAP LMP: normal NONE GIVEN Not Available [address], [address], 12/28/2022 23:39:03 12/22/19 23 12/28/2022 THINP REP TIS PAP prev. Pap: normal NONE GIVEN Not Available [address], [address], 12/28/2022 23:39:03 12/22/19 23 12/28/2022 THINP REP TIS PAP prev. BX: normal NONE GIVEN Not Available [address], [address], 12/28/2022 23:39:03 12/22/19 23 12/28/2022 THINP REP TIS PAP source: normal Cervi x Not Available [address], [address], 12/28/2022 23:39:03 12/22/19 23 12/28/2022 THINP REP TIS PAP statement of adequacy: normal Satis facto ry for evalu ation . Endoc ervic al/tr ansfo rmati on zone compo nent prese nt. Age and/o r menst rual statu s not provi ded Not Available [address], [address], 12/28/2022 23:39:03 12/22/19 23 12/28/2022 THINP REP TIS PAP interpretati on/result: normal Negat ga for intra epith elial lesio n or opal prajapati . Not Available [address] [place], [address], 12/28/2022 23:39:03 12/22/19 23 12/28/2022 THINP REP TIS PAP comment: normal This Pap test has been evalu ated with yoshi gill techn ology . Not Available [place] [address] [place], [address], 12/28/2022 23:39:03 12/22/19 23 12/28/2022 THINP REP TIS PAP cytotechnolo gist: normal LM, CT( CP) CT scree jose locat ion: [place] [address] [place] [address] Not Available [place] [address] [place], [address], 12/28/2022 23:39:03 12/22/19 23 12/28/2022 THINP REP TIS PAP comment EXPLA NATOR Y NOTE: The Pap is a scree jose test for cervi mera cance r. It is not a diagn ostic test and is subje ct to false negat ga and false posit ga resul ts. It is most relia ble when a satis facto ry sampl e, regul rosalie obtai marisol, is submi tted with relev ant clini mera findi ngs and histo ry, and when the Pap resul t is evalu ated along with histo lexi and curre nt clini mera infor matio n. Not Available [address] [address], [place], [address], 12/28/2022 23:39:03 12/27/19 24 12/28/2023 HPV HIGH RISK HPV high risk Negati ve negati ve normal The HPV High Risk assay is inten ded for use as co-te sting with cytol ogy and not as a subst itute for regul ar cervi mera cytol ogy scree jose. This assay is not inten ded for use as a scree jose devic e for women under age 30 with andie l cervi mera cytol ogy. Not Available [facility] [address] [place], [address], 12/29/2023 09:23:45 12/27/19 24 12/30/2023 THINP REP TIS PAP clinical information: normal None given Not Available [place] [address] [place], [address], 12/30/2023 12:08:43 12/27/19 24 12/30/2023 THINP REP TIS PAP LMP: normal NONE GIVEN Not Available [place] [address] [place], [address], 12/30/2023 12:08:43 12/27/19 24 12/30/2023 THINP REP TIS PAP prev. Pap: normal NONE GIVEN Not Available [place] [address] [place], [address], 12/30/2023 12:08:43 12/27/19 24 12/30/2023 THINP REP TIS PAP prev. BX: normal NONE GIVEN Not Available [place] [address] [place], [address], 12/30/2023 12:08:43 12/27/19 24 12/30/2023 THINP REP TIS PAP source: normal Cervi x Not Available [place] [address] [place], [address], 12/30/2023 12:08:43 12/27/19 24 12/30/2023 THINP REP TIS PAP statement of adequacy: normal Satis facto ry for evalu ation . Endoc ervic al/tr ansfo rmati on zone compo nent prese nt. Age and/o r menst rual statu s not provi ded Not Available [place] [address] [place], [address], 12/30/2023 12:08:43 12/27/19 24 12/30/2023 THINP REP TIS PAP interpretati on/result: normal Cytol ogy Resul ts: Negat ga for intra epith elial lesio n or opal prajapati . Not Available [place] [address] [place], [address], 12/30/2023 12:08:43 12/27/19 24 12/30/2023 THINP REP TIS PAP comment: normal This Pap test has been evalu ated with compu ter adrianne machado techn ology . Not Available [place] [address] [place], [address], 12/30/2023 12:08:43 12/27/19 24 12/30/2023 THINP REP TIS PAP cytotechnolo gist: normal MATT, CT( CP) CT scree jose locat ion: [place] [address] [place] [address] Not Available [place] [address] [place], [address], 12/30/2023 12:08:43 12/27/19 24 12/30/2023 THINP REP TIS PAP comment EXPLA NATOR Y NOTE: The Pap is a scree jose test for cervi mera cance r. It is not a diagn ostic test and is subje ct to false negat ga and false posit ga resul ts. It is most relia ble when a satis facto ry sampl e, regul roaslie obtai marisol, is submi tted with relev ant clini mera findi ngs and histo ry, and when the Pap resul t is evalu ated along with histo lexi and curre nt clini mera infor matio n. Not Available [place] [address] [place], [address], 12/30/2023 12:08:43 12/26/1912/26/2024 HPV HIGH RISK HPV high risk Negati ve negati ve normal The HPV High Risk assay is inten ded for use as co-te sting with cytol ogy and not as a subst itute for regul ar cervi mera cytol ogy scree jose. This assay is not inten ded for use as a scree jose devic e for women under age 30 with andie l cervi mera cytol ogy. Not Available [address], [address], 12/26/2024 14:52:56 12/26/19 25 12/28/2024 THINP REP TIS PAP clinical information: normal None given Not Available [address], [address], 12/28/2024 12:42:03 12/26/19 25 12/28/2024 THINP REP TIS PAP LMP: normal NONE GIVEN Not Available [address], [address], 12/28/2024 12:42:03 12/26/19 25 12/28/2024 THINP REP TIS PAP prev. Pap: normal NONE GIVEN Not Available [address], [address], 12/28/2024 12:42:03 12/26/19 25 12/28/2024 THINP REP TIS PAP prev. BX: normal NONE GIVEN Not Available [address], [address], 12/28/2024 12:42:03 12/26/19 25 12/28/2024 THINP REP TIS PAP source: normal Cervi x Not Available [address], [address], 12/28/2024 12:42:03 12/26/19 25 12/28/2024 THINP REP TIS PAP statement of adequacy: normal Satis facto ry for evalu ation . Endoc ervic al/tr ansfo rmati on zone compo nent prese nt. Age and/o r menst rual statu s not provi ded Not Available [address], [address], 12/28/2024 12:42:03 12/26/19 25 12/28/2024 THINP REP TIS PAP interpretati on/result: normal Cytol ogy Resul ts: Negat ga for intra epith elial lesio n or malcody thompsoncy . Not Available [facility] [address] [place], [address], 12/28/2024 12:42:03 12/26/19 25 12/28/2024 THINP REP TIS PAP comment: normal This Pap test has been evalu ated with compu gill techn ology . Not Available [facility] [address] [place], [address], 12/28/2024 12:42:03 12/26/19 25 12/28/2024 THINP REP TIS PAP cytotechnolo gist: normal LYLE, CT( CP) CT Scree jose locat ion: [address] [place] [address] Not Available [facility] [address] [address], [place], [address], 12/28/2024 12:42:03 12/26/1912/28/2024 THINP REP TIS PAP comment EXPLA NATOR Y NOTE: The Pap is a scree jose test for cervi mera cance r. It is not a diagn ostic test and is subje ct to false negat ga and false posit ga resul ts. It is most relia ble when a satis facto ry sampl e, regul rosalie obtai marisol, is submi tted with relev ant clini mera findi ngs and histo ry, and when the Pap resul t is evalu ated along with histo lexi and curre nt clini mera infor matio n. Not Available [facility] [address] [place], [address], 12/28/2024 12:42:03 11/10/19 23 11/09/2022 MAMMO , scree jose, bilat eral No observ ation record ed. [address], [place], [address], 11/16/2022 11:25:38 12/02/19 23 12/01/2022 MAMMO , diagn ostic , digit al, unila teral No observ ation record ed. [facility] (Im[facility]) [address], [place], [address], 12/02/2022 16:12:56 Result Notes None recorded. Problems Name Problem SNOMED Code Status Onset Date Resolution Date Notes Provider Name and Address Organization Details Recorded Time Clinical finding Completed 201710/03/2018 state, incident al; Progress : Stable Added By: Inocencia Harris Add to Current Problems : NO ProblemS tatus: Resolve Not Available [facility] 2 19:59:59 Clinical finding Completed 201608/15/2017 Encounte r for supervis ion of normal pregnanc y, unspecif ied, unspecif ied trimeste r; Progress : Stable Added By: Rachel Rose Add to Current Problems : NO ProblemS tatus: Resolve Not Available [facility] 2 19:51:57 Missed miscarri age [id number] Completed 201608/15/2017 Missed ; Progress : Stable Added By: Erika Del Toro Add to Current Problems : NO ProblemS tatus: Resolve Not Available [facility] 2 19:59:58 Antenata l care: multipar ous, older than 35 years [id number] Completed 201709/29/2018 Elderly multigra adam high risk pregnanc y visit; Progress : Stable Added By: Marquita Pantoja Add to Current Problems : NO ProblemS tatus: Resolve Elderly multigra adam high risk pregnanc y visit; Location : None Progress : Stable Added By: Marquita Pantoja Add to Current Problems : YES ProblemS tatus: Current Supervis ion of elderly multigra adam, first trimeste r; Progress : Stable Added By: Marquita Pantoja Add to Current Problems : NO ProblemS tatus: Resolve; Start Date : 05/05/20 18 Not Available [facility] 2 19:59:57 Gestatio n period, 29 weeks [id number] Completed 201709/29/2018 29 weeks gestatio n of pregnanc y; Progress : Stable Added By: Jenny Wade Add to Current Problems : NO ProblemS tatus: Resolve Not Available [facility] 2 19:59:58 Hernia of abdomina l cavity [id number] Active 2019 Unspecif ied abdomina l hernia without obstruct ion or gangrene ; Progress : Stable Added By: Tee Patel Add to Current Problems : YES ProblemS tatus: Current [facility] Available [facility] 2 19:59:52 Gestatio n period, 33 weeks [id number] Completed 201711/27/2018 33 weeks gestatio n of pregnanc y; Progress : Stable Added By: Marija Jerez Add to Current Problems : NO ProblemS tatus: Resolve Not Available [facility] 2 19:51:58 Gestatio nal diabetes mellitus 84122224 Completed 201711/27/2018 Gestatio nal diabetes mellitus in pregnanc y, diet controll ed; Progress : Stable Added By: Jonelle Rogel Add to Current Problems : NO ProblemS tatus: Resolve; Start Date : 09/05/20 18 Gesta tional diabetes mellitus in pregnanc y, insulin controll ed; Progress : Stable Added By: Inocencia Harris Add to Current Problems : NO ProblemS tatus: Resolve Not Available [facility] 2 19:59:59 Gestatio n period, 10 weeks [id number] Completed 201605/08/2018 10 weeks gestatio n of pregnanc y; Progress : Stable Added By: Amber Henry Add to Current Problems : NO ProblemS tatus: Resolve Not Available [facility] 2 19:51:57 Abnormal glucose toleranc e in mother complica ting pregnanc y, childbir th AND/OR puerperi 12632647 Completed 201605/16/2017 Abnormal glucose complica ting pregnanc y; Progress : Stable Added By: Jo Bolton Add to Current Problems : NO ProblemS tatus: Resolve Not Available [facility] 2 19:59:53 Procedur e on genitour inary system Completed 201811/27/2018 Encounte r for surgical aftercar e followin g surgery on the genitour inary system; Progress : Stable Added By: Jenny Wade Add to Current Problems : NO ProblemS tatus: Resolve Not Available [facility] 2 19:59:54 Postoper ative care Completed 201811/27/2018 Encounte r for surgical aftercar e followin g surgery on the genitour inary system; Progress : Stable Added By: Jenny Wade Add to Current Problems : NO ProblemS tatus: Resolve Not Available [facility] 2 19:59:54 Body mass index 30+ - obesity [id number] Active 2018 Body mass index (BMI) 34.0-34. 9, adult; Progress : Stable Added By: Marija Jerez Add to Current Problems : YES ProblemS tatus: Current Not Available [facility] 2 19:59:55 Maternal obesity complica ting pregnanc y, childbir th and the puerperi um, antepart um [id number] Completed 201709/29/2018 Obesity complica ting pregnanc y, childbir th, or the puerperi um, antepart um conditio n or complica tion; Progress : Stable Added By: Marquita Pantoja Add to Current Problems : NO ProblemS tatus: Resolve Not Available [facility] 2 19:59:51 Urinary tract infectio us disease 49707775 Completed 201707/17/2018 Test of Cure; Location : None Progress : Stable Added By: Inocencia Harris Add to Current Problems : YES ProblemS tatus: Resolve Urinary tract infectio n, site not specifie d; Progress : Stable Added By: Inocencia Harris Add to Current Problems : NO ProblemS tatus: Resolve Not Available [facility] 2 19:59:52 Gestatio n period, 35 weeks 99227436 Completed 201811/27/2018 35 weeks gestatio n of pregnanc y; Progress : Stable Added By: Inocencia Harris Add to Current Problems : NO ProblemS tatus: Resolve Not Available [facility] 2 19:59:57 Gestatio n period, 32 weeks [id number] Completed 201711/27/2018 32 weeks gestatio n of pregnanc y; Progress : Stable Added By: Jonelle Rogel Add to Current Problems : NO ProblemS tatus: Resolve Not Available [facility] 2 20:00:00 Oligohyd ramnios Completed 201811/27/2018 Oligohyd ramnios, third trimeste r, not applicab le or unspecif ied; Progress : Stable Added By: Elvis Colon Add to Current Problems : NO ProblemS tatus: Resolve Not Available [facility] 2 20:00:01 Uses intraute rine contrace ption [id number] Completed 201509/29/2018 Patient with intraute rine contrace ptive device (IUD); Location : None Severity : Moderate Progress : Stable Added By: Rashida Pichardo Add to Current Problems : YES ProblemS tatus: Current Patient with intraute rine contrace ptive device (IUD); Severity : Moderate Progress : Stable Added By: Rashida Pichardo Add to Current Problems : NO ProblemS tatus: Resolve Not Available [facility] 1 19:36:05 Abdomina l pain 98321874 Completed 201707/17/2018 Abdomina l pain, unspecif ied; Progress : Stable Added By: Nadira Obrien Add to Current Problems : NO ProblemS tatus: Resolve Unspecif ied abdomina l pain; Progress : Stable Added By: Nadira Obrien Add to Current Problems : NO ProblemS tatus: Resolve Not Available [facility] 2 19:59:57 Gestatio n period, 31 weeks [id number] Completed 201709/29/2018 31 weeks gestatio n of pregnanc y; Progress : Stable Added By: Inocencia Harris Add to Current Problems : NO ProblemS tatus: Resolve Not Available [facility] 2 19:51:58 Pregnanc y with other medical conditio n Completed 201709/29/2018 Incident al pregnanc y; Location : None Severity : Moderate Progress : Stable Added By: Inocencia Harris Add to Current Problems : NO ProblemS tatus: Current Incident al pregnanc y; Severity : Moderate Progress : Stable Added By: Inocencia Harris Add to Current Problems : NO ProblemS tatus: Resolve Not Available [facility] 1 19:36:07 Miscarri age 60359806 Completed 201608/15/2017 Complete or unspecif ied spontane ous without complica tion; Progress : Stable Added By: Marija Jerez Add to Current Problems : NO ProblemS tatus: Resolve Miscarri age before 22 weeks gestatio n; Location : None Progress : Stable Added By: Marija Jerez Add to Current Problems : YES ProblemS tatus: Resolve Not Available [facility] 2 19:59:53 Gestatio n period, 27 weeks [id number] Completed 201709/29/2018 27 weeks gestatio n of pregnanc y; Progress : Stable Added By: Alexus Berg Add to Current Problems : NO ProblemS tatus: Resolve Not Available [facility] 2 20:00:01 Threaten ed miscarri age 59327090 Completed 201608/15/2017 Threaten ed ; Progress : Stable Added By: Marquita Pantoja Add to Current Problems : NO ProblemS tatus: Resolve Not Available [facility] 2 19:51:[address] Concept Completed 201711/27/2018 Medical visit for pregnanc y with other poor obstetri c history; Progress : Stable Added By: Marquita Pantoja Add to Current Problems : NO ProblemS tatus: Resolve; Start Date : 06/05/20 18 Super vision of other high risk pregnanc ies, third trimeste r; Progress : Stable Added By: Inocencia Harris Add to Current Problems : NO ProblemS tatus: Resolve Not Available [facility] 2 19:59:55 Clinical finding Completed 201510/03/2018 Presence of (intraut erine) contrace ptive device; Progress : Stable Added By: Rashida Pichardo Add to Current Problems : NO ProblemS tatus: Resolve Not Available [facility] 2 19:59:53 Gestatio n period, 34 weeks [id number] Completed 201811/27/2018 34 weeks gestatio n of pregnanc y; Progress : Stable Added By: Jenny Wade Add to Current Problems : NO ProblemS tatus: Resolve Not Available [facility] 2 19:59:59 Normal pregnanc y in multigra adam [id number] 4106 Completed 201710/03/2018 Encounte r for supervis ion of other normal pregnanc y, unspecif ied trimeste r; Progress : Stable Added By: Rachel Rose Add to Current Problems : NO ProblemS tatus: Resolve; Start Date : 03/09/20 17 Encou nter for supervis ion of other normal pregnanc y, second trimeste r; Progress : Stable Added By: Alexus Berg Add to Current Problems : NO ProblemS tatus: Resolve; Start Date : 06/05/20 18 Encou nter for supervis ion of other normal pregnanc y, third trimeste r; Progress : Stable Added By: Alexus Berg Add to Current Problems : NO ProblemS tatus: Resolve Not Available [facility] 2 19:59:52 Situatio n with explicit context Completed 201710/03/2018 Supervis ion of pregnanc y with other poor reproduc tive or obstetri c history, first trimeste r; Progress : Stable Added By: Marquita Pantoja Add to Current Problems : NO ProblemS tatus: Resolve Not Available [facility] 2 19:59:54 Situatio n with explicit context Completed 201710/03/2018 Supervis ion of pregnanc y with other poor reproduc tive or obstetri c history, unspecif ied trimeste r; Progress : Stable Added By: Marquita Pantoja Add to Current Problems : NO ProblemS tatus: Resolve Not Available [facility] 2 19:59:56 Gestatio n period, 30 weeks [id number] Completed 201709/29/2018 30 weeks gestatio n of pregnanc y; Progress : Stable Added By: Alexus Berg Add to Current Problems : NO ProblemS tatus: Resolve Not Available [facility] 2 19:59:50 Glucose toleranc e test during pregnanc y - baby not yet delivere d outside referenc e range [id number] Completed 201605/16/2017 Abnormal Maternal Glucose Toleranc e; Progress : Stable Added By: Jo Bolton Add to Current Problems : NO ProblemS tatus: Resolve Not Available [facility] 2 19:59:50 Antenata l screenin g Completed 201711/27/2018 Antenata l screenin g; unspecif ied; Location : None Progress : Stable Added By: Alexus Berg Add to Current Problems : YES ProblemS tatus: Current; Start Date : 04/17/20 18 Anten atal screenin g; unspecif ied; Location : None Progress : Stable Added By: Amber Henry Add to Current Problems : YES ProblemS tatus: Resolve; Start Date : 04/17/20 18 Anten atal screenin g; unspecif ied; Location : None Progress : Stable Added By: Rachel Rose Add to Current Problems : YES ProblemS tatus: Resolve; Start Date : 03/09/20 17 Encou nter for antenata l screenin g of mother; Progress : Stable Added By: Alexus Berg Add to Current Problems : NO ProblemS tatus: Resolve; Start Date : 03/09/20 17 Encou nter for other specifie d antenata l screenin g; Progress : Stable Added By: Inocencia Harris Add to Current Problems : NO ProblemS tatus: Resolve Not Available [facility] 2 19:59:56 IUCD status [id number] Active 2015 Patient with intraute rine contrace ptive device (IUD); Location : None Progress : Stable Added By: Rashida Pichardo Add to Current Problems : YES ProblemS tatus: Current Not Available [facility] 2 19:59:56 Problem Notes None recorded. Procedures Surgical History Date Name Laterality Status Provider Name and Address Organization Details Recorded Time 12/26/19 25 Date of Last Pap Smear completed Digna Jacinto MD [address] [place], [address], [place] [facility] IV 01/02/2025 19:24:17 01/31/20 24 Most Recent Mammogram completed Mesha Kimble [place] [facility] IV 12/25/2024 10:02:33 10/10/19 23 Date of Last Colonoscopy completed Mesha Kimble [facility] IV 12/25/2024 10:07:38 exploratory laparotomy completed Elisa Silvinotrusiak [facility] IV 11/11/2021 00:34:10 section completed Elisa Pietrusiak [facility] IV 11/11/2021 00:34:26 C Section completed Catrachita Dexter [facility] 11/24/2021 14:32:08 Imaging Results Imaging Date Name Status LastModified by Organiz ation Details LastModified Time 11/09/2022 MAMMO, screening, bilateral completed [address] [facility] [address] [place] [address], [address], 11/16/2022 11:25:38 12/01/2022 MAMMO, diagnostic, digital, unilateral completed [facility] (Imaging) [address] [facility] [address], [address], 12/02/2022 16:12:56 Procedure Notes None recorded. Medical Equipment None Reported. Allergies Allergen ID Allergen Name Allergen Category Reaction Reaction Severity Criticality Documentation Date Start Date Code Code System Note Provider Name and Address Organization Details Recorded Time 764438 house dust allergeni c extract environme nt,medica tion Not available Not available Not available 12/27/2023 82809 9 RxNorm Beazaire norton null, [employer] - [facility] IV 4 11:30:44 371847 cow milk allergeni c extract food,medi cation Not available Not available Not available 12/27/2023 00593 5 RxNorm Mesha Kimble null, [place] [facility] 5 10:04:35 274528 lactose food,medi cation Not available Not available Not available 12/25/2024 6211 RxNorm Mesha Kimble null, [place] [facility] 5 10:04:31 Medications Name Sig Start Date Stop Date Status Note LastModified by Organization Details LastModified Time nystatin 100,000 unit/mL oral suspensio n SWISH AND SWALLOW 5 ML THREE TIMES DAILY FOR 7 DAYS FOR POSSIBLE THRUSH 12/21 completed Not Available Not Available Not Available azithromy varun 250 mg tablet TAKE 2 TABLETS BY MOUTH FOR 1 DAY THEN TAKE 1 TABLET BY MOUTH DAILY FOR 4 DAYS 12/24 completed Not Available Not Available Not Available fluconazo le 150 mg tablet 11/24 completed Not Available Not Available Not Available Keflex 500 mg capsule 1 capsule po BID x 7 days 06/05 completed Keflex 500mg Capsules RxNorm: 031910 Allow Substitu tion: True Refill Denied: No Not Available Not Available Not Available meloxicam 15 mg tablet TAKE 1 TABLET BY MOUTH DAILY NEEDED FOR PAIN 11/24 completed Not Available Not Available Not Available prednison e 20 mg tablet TAKE 1 TABLET BY MOUTH EVERY MORNING 12/21 completed Not Available Not Available Not Available phentermi ne 37.5 mg tablet Take 1 tablet(s ) by mouth daily 11/24 completed Phenterm ine HCl 37.5mg Tablets RxNorm: 565400 Allow Substitu tion: True Refill Denied: No Refill DateOccu rred: 11/27/19 19 Not Available Not Available Not Available Zantac 75 mg tablet Take 1 tablet po bid 12/04 completed Zantac 75 75mg Tablet RxNorm: 770879 Allow Substitu tion: True Refill Denied: No Not Available Not Available Not Available doxycycli ne monohydra te 100 mg tablet 1 po bid x 7 days and may have tab/caps ule or any type 02/23 completed Doxycycl ine Monohydr ate 100mg Tablet RxNorm: 2391737 Allow Substitu tion: True Refill Denied: No Not Available Not Available Not Available amoxicill in 500 mg tablet TAKE 1 TABLET BY MOUTH EVERY 12 HOURS 12/24 completed Not Available Not Available Not Available hydrocort isone acetate 25 mg rectal supposito ry UNWRAP & INSERT 1 SUPPOSIT ORY RECTALLY TWICE A DAY NEEDED FOR HEMORRHO IDS 11/24 completed Not Available Not Available Not Available Vitamin tablet Take 1 taablet by mouth daily. 06/24 completed Multivit barr Tablet Allow Substitu tion: True Refill Denied: No Not Available Not Available Not Available terbinafi ne HCl 250 mg tablet 12/21 completed Not Available Not Available Not Available neomycin- polymyxin -dexameth 3.5 mg/mL-10, 000 unit/mL-0 .1% eye drops INSTILL 1 DROP INTO THE LEFT EYE 4 TIMES DAILY X4 DAYS 12/26 completed Not Available Not Available Not Available misoprost ol [address] 4 tabs per vagina with tampon. May repeat in 12 hours if no passage of tissue. 06/03 completed Misopros stanislav 200mcg Tablet Allow Substitu tion: True Refill Denied: No Not Available Not Available Not Available furosemid e 20 mg tablet 1 tab PO QD X 5 days 12/26 completed Furosemi de 20mg Tablets RxNorm: 483862 Allow Substitu tion: True Refill Denied: No Not Available Not Available Not Available albuterol sulfate HFA 90 mcg/actua tion aerosol inhaler INHALE 2 INHALATI ONS EVERY 4 HOURS NEEDED FOR SHORTNES S OF BREATH OR WHEEZING 11/24 completed Not Available Not Available Not Available cefdinir 300 mg capsule TAKE 1 CAPSULE BY MOUTH EVERY 12 HOURS 12/21 completed Not Available Not Available Not Available fluticaso ne propionat e 50 mcg/actua tion nasal spray,jeremie pension SHAKE LIQUID AND USE 1 SPRAY IN EACH NOSTRIL TWICE DAILY active Not Available Not Available No t Available mometason e 0.1 % topical cream active Not Available Not Available Not Available nitrofura ntoin monohydra te/macroc rystals 100 mg capsule TAKE 1 CAPSULE BY MOUTH EVERY 12 HOURS FOR 3 DAYS WITH A MEAL OR FOOD 12/21 completed Not Available Not Available Not Available Vitamins 11/24 completed Vitamins Allow Substitu tion: True Refill Denied: No Refill DateOccu rred: 03/09/20 17 Not Available Not Available Not Available Mirena 2018 active Mirena 52mg Intraute rine System RxNorm: 409736 Allow Substitu tion: True Refill Denied: No Refill DateOccu rred: 12/26/19 19 Not Available Not Available Not Available cholecalc iferol (vitamin D3) 1,250 mcg (50,000 unit) capsule TAKE ONE CAPSULE BY MOUTH EVERY WEEK active Not Available Not Available No t Available omeg3-dha -epa-fish oil-L.annabel ei active Not Available Not Available Not Available semagluti de (weight loss) active Not Available Not Available Not Available Vitals Date Recorded Body weight Body mass index (BMI) Body height Body temperature Systolic blood pressure Diastolic blood pressure Provider Name and Address Organization Details Last Updated DateTime 2 81707.4 1 g 37.2 kg/m2 157.48 cm 97.1 [degF] 130 mm[Hg] 88 mm[Hg] Catrachita Dexter [facility] 2 14:44:05 Date Recorded Body weight Body mass index (BMI) Body height Systolic blood pressure Diastolic blood pressure Provider Name and Address Organization Details Last Updated DateTime 12/21/2022 25087.2 5 g 37.1 kg/m2 157.48 cm 110 mm[Hg] 70 mm[Hg] Bea Quintero [facility] 3 17:19:31 Date Recorded Body weight Body mass index (BMI) Body height Systolic blood pressure Diastolic blood pressure Provider Name and Address Organization Details Last Updated DateTime 12/27/2023 83319.8 1 g 33.3 kg/m2 157.48 cm 110 mm[Hg] 76 mm[Hg] Bea Quintero [facility] 4 11:38:42 Date Recorded Body height Body mass index (BMI) Body weight Systolic blood pressure Diastolic blood pressure Provider Name and Address Organization Details Last Updated DateTime 12/25/2024 157.48 cm 33.9 kg/m2 59285.74 g 116 mm[Hg] 78 mm[Hg] Mesha Lamin [facility] 5 10:10:40 Social History Question Answer Notes LastModified by Organizat ion Details LastModified Time Tobacco Smoking Status Never Smoker Catrachita ospina [facility] 11/24/2021 14:32:02 What Is Your Level Of Alcohol Consumption? Occasional Information not available 11/24/2021 If You Are , What Was Your Level Of Alcohol Consumption Prior To ? None Information not available 12/25/2024 How Many Years Have You Consumed Alcohol? 24 Information not available 12/25/2024 Are You Blind Or Do You Have Difficulty Seeing? No Information not available 11/24/2021 Are You Currently Employed? No Information not available 12/27/2023 Are You Deaf Or Do You Have Serious Difficulty Hearing? No Information not available 11/24/2021 What Type Of Diet Are You Following? REGULAR Information not available 11/24/2021 Do You Or Have You Ever Used E-cigarettes Or Vape? Never Used Electronic Cigarettes Information not available 11/24/2021 How Many Children Do You Have? 4 Information not available 12/21/2022 What Is Your Relationship Status? Information not available 11/11/2021 Are You Sexually Active? Yes Information not available 11/11/2021 What Types Of Sporting Activities Do You Participate In? Volleyball Information not available 12/27/2023 Do You Use Any Illicit Or Recreational Drugs? No Information not available 12/21/2022 Sex: Unknown Functional Status Question Answer Note LastModified by Organizat ion Details LastModified Time What is your exercise level? Occasional Information not available 11/24/2021 Mental Status None recorded. Family History Relationship Description Onset Age of this Age Resolved Age Notes LastModified by Organization Details LastModified Time Paternal Grandfather Malignant neoplastic disease apietiukiewic z Not available 12/21/2022 17:08:48 Maternal Grandmother Diabetes mellitus apietiukiewic z Not available 12/21/2022 17:08:48 Mother Osteoporosis apietiukiew ic z Not available 12/21/2022 17:08:48 Medical History Condition Response Diabetes Mellitus (during ) Y Gynecological History Statement/Question Response Flow Light Date of last HPV 12/25/2024 Date of LMP 12/15/2024 HPV Vaccine N Duration of Flow (days) 3 Most Recent Mammogram 01/31/2024 Current Control Method IUD Age at Menarche 9 Date of Last Colonoscopy 10/10/2022 Most Recent Bone Density Frequency of Cycle (Q days) 28 Date of Last Pap Smear 12/25/2024 Obstetrics History GPAL:G 7 P 4 0 3 4 Type Value Full Term 4 Spontaneous 3 Living 4 Total 7 Past Encounters Encounter ID Performer Location Encounter Start Date Encounter Closed Date Diagnosis/Indication Diagnosis SNOMED-CT Code Diagnosis ICD10 Code Diagnosis Note [id number] Digna Jacinto MD [address] [address] 11/24/2021 14:01:58 11/24/2021 15:53:17 Gynecologic examination 00746887 Z01.419 Screening for malignant neoplasm of cervix 109584268 Z12.4 Screening for malignant neoplasm of breast 756390726 Z12.39 discussed getting first mammogram. Pt to call either [facility] or [facility] to get this scheduled. Depression screening 171 382597 Z13.[address] ess incontinence 14331630 N39.3 discussed [id number] Digna Jacinto MD [address] [address] 12/21/2022 16:04:30 12/21/2022 21:06:10 Gynecologic examination 50321976 Z01.419 normal risk control specialist exam. discussed rectus diastasis and following with plastic surgery. Trying to lose weight in preparatio n for surgery. Screening for malignant neoplasm of cervix 091315656 Z12.4 Depression screening 171 404787 Z13.31 not depressed IUD check 910355704 Z30. [address]. Discussed effectiven ess is good for 7 yr but that sometimes periods may resume as it gets closer to 5 yr - may consider changing next yr prn. She does not desire any further childbeari ng [id number] Digna Jacinto MD [address] [address] 12/27/2023 11:19:12 12/27/2023 12:23:29 Gynecologic examination 12393483 Z01.419 normal risk control specialist exam. discussed rectus diastasis and following with plastic surgery. Trying to lose weight in preparatio n for surgery. Screening for malignant neoplasm of cervix 245541920 Z12.4 Screening for malignant neoplasm of breast 063448945 Z12.39 pt to schedule her annual mmg [id number] Digna Jacinto MD [facility] [address] [place] [address] 12/25/2024 10:00:25 12/25/2024 10:30:35 Gynecologic examination 50567515 Z01.419 normal risk control specialist exam. discussed rectus diastasis and following with plastic surgery. Trying to lose weight in preparatio n for surgery.di scussed her weight loss and cost of compounded med. informed about the [employer] program where she can get med for lower costWill check into this for pt Screening for malignant neoplasm of cervix 581378001 Z12.4 Screening for malignant neoplasm of breast 887454832 Z12.39 pt to schedule her annual mmg Depression screening 171 421082 Z13.31 not depressed Health Concerns Section Related Observation LastModified by Organization Detai ls LastModified Time None Recorded Concern Status LastModified by Organization Details LastModified Time None Recorded Advance Directives Directive None Recorded Payers Encounter Date Sequence Insurance Name Policy Number Policy Bailon Covered Member ID Bailon Member ID Guarantor Name 11/24/2021 1 [place] [id number] 1 Theodore [id number] Alesiha Lundberg 12/21/2022 1 [place] [id number] 1 Theodore Lundberg [id number] Aleshia Lundberg 12/27/2023 1 [place] [id number] 1 Theodore Lundberg [id number] Aleshia Lundberg 12/25/2024 1 [facility] (PPO) [id number] Aleshia Lundberg [id number] lAeshia Lundberg Notes Date Note Type Note Provider Name and Address Organization Details Recorded Time 11/24/2021 text/html Aleshia comes in for her annual well exam. She has a Mirena IUD in place and has no periods. In September, she had Covid and had lot of coughing. She has had stress incontinence and this made it worse. She has been doing Kegel's and even ordered some vaginal cones for exercise, it improved some but not much. She also has a rectus diastasis and ventral hernia that is large, she had MRI and has seen a surgeon about getting it fixed. She enjoys playing volleyball but notes it is difficult for her because of the urine leakage. Digna Jacinto MD [address] [place] [address], [place], [address], [facility] [employer] [facility] 11/24/2021 15:51:58 12/21/2022 text/html Aleshia is being seen today for an annual exam w/ PAP.. Patient has no concerns. She has a Mirena IUD in place. She has begun having light periods again. it was placed 12/2018.She has baby De that was born by c section and he is 4 yr old. was complicated by severe IUGR and emergency c section.Aleshia is having issues with her abdominal wall. She has been evaluated for rectus diastasis and possible ventral hernia. She has seen surgery and plastic surgery in consideration for repair.She did have a mmg in Nov and was called back, but it was nl. Digna Jacinto MD [address] [place] [address], [phone], [facility] [employer] [facility] 12/21/2022 21:05:58 12/27/2023 text/html Patient is here for annual exam, she had a pap smear 12/21/22 NML/NEG HPV. her last mammogram was 12/01/22. She is due and will need order. Patient has a Mirena in place and is doing well. Patient states she does have severe breast pain around the time she is supposed to have her period.She saw plastics last February and is considering an abdominoplasty and repair of diastasis, was told has to lose weight to BMI under 30, was prescribed Mounjaro and is happy with the results, has lost 20 p Digna Jacinto MD [address] [place] [address], [phone], [facility] [employer] [facility] IV 12/27/2023 12:23:16 12/25/2024 text/html Aleshia presents [employer]. Last pap:. LMP: . Pt is currently using Mirena for contraception. Last mammogram: 12-01-2022. Last colon cancer screenin. Pt has questions on Perimenopause. Pt voices no other concerns. PHQ is 0.She is losing weight in order to get abdominoplasty, needs to be BMI 30 or underGoing [place]600 monthly for compounded med. was on Tizerpatide up to 8 mg but plateaued.then they switched her to semaglutide, but did not lose more so stopped Digna Jacinto MD [address] [place], [address], [facility] [employer] [facility] 12/25/2024 10:30:11 OBGyn Episode Ob Episode Information Episode Created Date Number of Fetuses Patient Bloodtype Patient rh Status Prepregnancy Weight lbs Domestic Partner Domestic Partner Phone Father Name Tractor Operator Battery Status 12/25/19 1 CLOSED Fetus Data First Name Last Name Admitted to NICU Weight (g) Sex Living Outcome Pediatric Complications Fetus ID Race Codes Race Delivery Type Demise [id number] Dani Calculation Initial Dani Date Initial Exam Date Initial Exam Provider Initial Ultrasound Date Last Menstrual Period Date Ultra Sound Weeks Gestation 0 Eighteen To Twenty Week Dani Update Ultra Sound Date Fundal Height At Umbil Quickening Date Ultra Sound Latest Weeks Gestation Final Dani Confirmed By Final Dani Confirmed Date Final Dani Date Ultra Sound Latest Days Gestation 0 0 Menstrual History Last Menstrual Date Menses Monthly On Bcp Conception Prior Menses Frequency Hcg Plus Date Menarche Onset Age Delivery Information Delivery Date Delivery Type Labor Anesthesia Weeks Gestation Incision Type Labor Labor Length Hrs Delivered By Post Complications Tubal Sterilization Discharge Date Comments 8 None true Discharge Information Feeding Method Contraceptive Method Maternal HG B and HCT Levels Ob Episode Information Episode Created Date Number of Fetuses Patient Bloodtype Patient rh Status Prepregnancy Weight lbs Domestic Partner Domestic Partner Phone Father Name Tractor Operator Battery Status 12/25/19 1 DELETED Dani Calculation Initial Dani Date Initial Exam Date Initial Exam Provider Initial Ultrasound Date Last Menstrual Period Date Ultra Sound Weeks Gestation 0 Eighteen To Twenty Week Dani Update Ultra Sound Date Fundal Height At Umbil Quickening Date Ultra Sound Latest Weeks Gestation Final Dani Confirmed By Final Dani Confirmed Date Final Dani Date Ultra Sound Latest Days Gestation 0 0 Menstrual History Last Menstrual Date Menses Monthly On Bcp Conception Prior Menses Frequency Hcg Plus Date Menarche Onset Age Delivery Information Delivery Date Delivery Type Labor Anesthesia Weeks Gestation Incision Type Labor Labor Length Hrs Delivered By Post Complications Tubal Sterilization Discharge Date Comments 1 None 282 true Comments : Still born Discharge Information Feeding Method Contraceptive Method Maternal HG B and HCT Levels Ob Episode Information Episode Created Date Number of Fetuses Patient Bloodtype Patient rh Status Prepregnancy Weight lbs Domestic Partner Domestic Partner Phone Father Name Tractor Operator Battery Status 12/25/19 22 1 CLOSED Fetus Data First Name Last Name Admitted to NICU Weight (g) Sex Living Outcome Pediatric Complications Fetus ID Race Codes Race Delivery Type 2352.78 [id number] M [id number] Dani Calculation Initial Dani Date Initial Exam Date Initial Exam Provider Initial Ultrasound Date Last Menstrual Period Date Ultra Sound Weeks Gestation 0 Eighteen To Twenty Week Dani Update Ultra Sound Date Fundal Height At Umbil Quickening Date Ultra Sound Latest Weeks Gestation Final Dani Confirmed By Final Dani Confirmed Date Final Dani Date Ultra Sound Latest Days Gestation 0 0 Menstrual History Last Menstrual Date Menses Monthly On Bcp Conception Prior Menses Frequency Hcg Plus Date Menarche Onset Age Delivery Information Delivery Date Delivery Type Labor Anesthesia Weeks Gestation Incision Type Labor Labor Length Hrs Delivered By Post Complications Tubal Sterilization Discharge Date Comments 4 250 true 6 Discharge Information Feeding Method Contraceptive Method Maternal HG B and HCT Levels Ob Episode Information Episode Created Date Number of Fetuses Patient Bloodtype Patient rh Status Prepregnancy Weight lbs Domestic Partner Domestic Partner Phone Father Name Tractor Operator Battery Status 12/25/19 22 1 CLOSED Fetus Data First Name Last Name Admitted to NICU Weight (g) Sex Living Outcome Pediatric Complications Fetus ID Race Codes Race Delivery Type 2438.05 7 M [id number] Dani Calculation Initial Dani Date Initial Exam Date Initial Exam Provider Initial Ultrasound Date Last Menstrual Period Date Ultra Sound Weeks Gestation 0 Eighteen To Twenty Week Dani Update Ultra Sound Date Fundal Height At Umbil Quickening Date Ultra Sound Latest Weeks Gestation Final Adni Confirmed By Final Dani Confirmed Date Final Dani Date Ultra Sound Latest Days Gestation 0 0 Menstrual History Last Menstrual Date Menses Monthly On Bcp Conception Prior Menses Frequency Hcg Plus Date Menarche Onset Age Delivery Information Delivery Date Delivery Type Labor Anesthesia Weeks Gestation Incision Type Labor Labor Length Hrs Delivered By Post Complications Tubal Sterilization Discharge Date Comments 7 243 true 5 Discharge Information Feeding Method Contraceptive Method Maternal HG B and HCT Levels Ob Episode Information Episode Created Date Number of Fetuses Patient Bloodtype Patient rh Status Prepregnancy Weight lbs Domestic Partner Domestic Partner Phone Father Name Tractor Operator Battery Status 12/25/19 22 1 CLOSED Fetus Data First Name Last Name Admitted to NICU Weight (g) Sex Living Outcome Pediatric Complications Fetus ID Race Codes Race Delivery Type 3259.96 [id number] F Full Term [id number] Dani Calculation Initial Dani Date Initial Exam Date Initial Exam Provider Initial Ultrasound Date Last Menstrual Period Date Ultra Sound Weeks Gestation 0 Eighteen To Twenty Week Dani Update Ultra Sound Date Fundal Height At Umbil Quickening Date Ultra Sound Latest Weeks Gestation Final Dani Confirmed By Final Dani Confirmed Date Final Dani Date Ultra Sound Latest Days Gestation 0 0 Menstrual History Last Menstrual Date Menses Monthly On Bcp Conception Prior Menses Frequency Hcg Plus Date Menarche Onset Age Delivery Information Delivery Date Delivery Type Labor Anesthesia Weeks Gestation Incision Type Labor Labor Length Hrs Delivered By Post Complications Tubal Sterilization Discharge Date Comments 2 false 6 Discharge Information Feeding Method Contraceptive Method Maternal HG B and HCT Levels Ob Episode Information Episode Created Date Number of Fetuses Patient Bloodtype Patient rh Status Prepregnancy Weight lbs Domestic Partner Domestic Partner Phone Father Name Tractor Operator Battery Status 12/25/19 22 1 DELETED Dani Calculation Initial Dani Date Initial Exam Date Initial Exam Provider Initial Ultrasound Date Last Menstrual Period Date Ultra Sound Weeks Gestation 0 Eighteen To Twenty Week Dani Update Ultra Sound Date Fundal Height At Umbil Quickening Date Ultra Sound Latest Weeks Gestation Final Dani Confirmed By Final Dani Confirmed Date Final Dani Date Ultra Sound Latest Days Gestation 0 0 Menstrual History Last Menstrual Date Menses Monthly On Bcp Conception Prior Menses Frequency Hcg Plus Date Menarche Onset Age Delivery Information Delivery Date Delivery Type Labor Anesthesia Weeks Gestation Incision Type Labor Labor Length Hrs Delivered By Post Complications Tubal Sterilization Discharge Date Comments 7 None 64 false Discharge Information Feeding Method Contraceptive Method Maternal HG B and HCT Levels Ob Episode Information Episode Created Date Number of Fetuses Patient Bloodtype Patient rh Status Prepregnancy Weight lbs Domestic Partner Domestic Partner Phone Father Name Tractor Operator Battery Status 12/25/19 22 1 CLOSED Fetus Data First Name Last Name Admitted to NICU Weight (g) Sex Living Outcome Pediatric Complications Fetus ID Race Codes Race Delivery Type [id number] Dani Calculation Initial Dani Date Initial Exam Date Initial Exam Provider Initial Ultrasound Date Last Menstrual Period Date Ultra Sound Weeks Gestation 0 Eighteen To Twenty Week Dani Update Ultra Sound Date Fundal Height At Umbil Quickening Date Ultra Sound Latest Weeks Gestation Final Dani Confirmed By Final Dani Confirmed Date Final Dani Date Ultra Sound Latest Days Gestation 0 0 Menstrual History Last Menstrual Date Menses Monthly On Bcp Conception Prior Menses Frequency Hcg Plus Date Menarche Onset Age Delivery Information Delivery Date Delivery Type Labor Anesthesia Weeks Gestation Incision Type Labor Labor Length Hrs Delivered By Post Complications Tubal Sterilization Discharge Date Comments 9 247 true Discharge Information Feeding Method Contraceptive Method Maternal HG B and HCT Levels
== END 2025-02-12 14:20 | disposition home or self-care (01) ==
PROVIDERS: PCP Family Medicine; Visit Provider Family Medicine
DX: Z12.31 Encounter for screening mammogram for malignant neoplasm of breast (principal); R92.8 Other abnormal and inconclusive findings on diagnostic imaging of breast
CPT/HCPCS: 77063; 77067

== ENCOUNTER 2025-03-11 13:40 | Outpatient (CLI) | payer OTHER, SELFPAY ==
--- NOTE | ~2025-03-11 | MM_ITS ---
MM DIAGNOSTIC [facility]O LT W KATERINE INDICATION: 45-year old female; BI-RADS 0, callback to evaluate Left breast asymmetry. COMPARISON: 02/12/2025 and 11/09/2022 TECHNIQUE: Digital breast tomosynthesis True lateral view and spot compression pain CC and MLO views of Left breast were obtained. FINDINGS: The breasts are heterogeneously dense, which may obscure small masses. The asymmetry seen in the Lateral Left breast on the previous screening mammogram does not persist wi th additional views, compatible with normal overlapping tissue.. IMPRESSION: Left breast asymmetry represents superimposition of fibroglandular tissue. No further investigation n ecessary. RECOMMENDATION: Annual screening mammography due February 2026 BI-RADS 2, BENIGN Reviewed, dictated and finalized at location B. IMPRESSION: Left breast asymmetry represents superimposition of fibroglandular tissue. No f urther investigation necessary. RECOMMENDATION: Annual screening mammography due February 2026 BI-RADS 2, BENIGN
--- OUTSIDE RECORDS SUMMARY | 2025-03-11 13:56 | XMS_ITS ---
Author Organization [facility] Address [address] [address] Care Team Providers Care Manager Adult Name Role Phone Chris Bee [phone] REASON FOR VISIT InBody Follow-up Encounters Encounter Location Date Provider Diagnosis [facility] ([address]) [address] [place] [phone] 09/05/2024 Chris Bee Plan Of Treatment No Information Progress Notes * Aleshia LUNDBERGDOB: [birth year] (45 yo F)Acc No.[id number]:09/05/2024 InBody Follow-up Patient: Aleshia CASAREZ Provider: Jcarlos Bee MD :1980 A ge:44 Y S ex:Female Date:09/05/2024 [facility] Subjective: * Chief Complaints: * 1 . InBody Follow-up. * Medical History: Objective: * Vitals: Assessment: Plan: * Treatment: * Billing Information: * Visit Code: * Procedure Codes: * Electronic signature of Rickie Bee MD, FAAAAI on 03/11/2025 at 01:56 PM CDT Sign off status: Pending * Provider: Jcarlos Bee MD Date: 11/05/2023 Generated for Printi ng/Faxing/eTransmitting on: 0 03/11/2025 01:56 PM CDT
--- OUTSIDE RECORDS SUMMARY | 2025-03-11 13:57 | XMS_ITS | Patient Health Record ---
Author Organization [facility] [employer] [place] ([address]) Address [address] [place] [phone] Care Team Providers Care Locomotive Mechanic Apprentice Name Role Phone Chris Bee [phone] Reason For Referral No Information Problems Problem Type SNOMED Code ICD Code Onset Dates Problem Status W/U Status Risk Notes Problem Morbid obesity (disorder) (576187174) Morbid (severe) obesity due to excess calories (E66.01) Active confirmed Problem Chronic fatigue, unspecified (R53.82) Active confirmed Vital Signs Height 60.6 in 09/05/2024 Weight 175.8 lbs 09/05/2024 BMI 33.65 kg/m2 09/05/2024 Encounters Encounter Location Date Provider Diagnosis [facility] [employer] [place] ([address]) [address] [place] [phone] 06/20/2024 Chris Bee Morbid (severe) obesity due to excess calories E66.01 and Chronic fatigue, unspecified R53.82 [facility] [facility] [place] ([address]) [address] [place] [phone] 07/04/2024 Chris Bee Morbid (severe) obesity due to excess calories E66.01 and Chronic fatigue, unspecified R53.82 [facility] [place] ([address]) [address] [place] [address] 07/26/2024 Chris Bee Morbid (severe) obesity due to excess calories E66.01 and Chronic fatigue, unspecified R53.82 [facility] [place] ([address]) [address] [place] [address] 08/08/2024 Chris Win Morbid (severe) obesity due to excess calories E66.01 and Chronic fatigue, unspecified R53.82 [facility] ([address]) [address] [place] [phone] 08/22/2024 Chris Win Morbid (severe) obesity due to excess calories E66.01 and Chronic fatigue, unspecified R53.82 [facility] ([address]) [address] [place] [phone] 03/14/2024 Chris Win Morbid (severe) obesity due to excess calories E66.01 ; Chronic fatigue, unspecified R53.82 ; Other fatigue R53.83 and Other malaise R53.81 [facility] ([address]) [address] [place] [phone] 03/21/2024 Chris Win Morbid (severe) obesity due to excess calories E66.01 ; Chronic fatigue, unspecified R53.82 ; Other fatigue R53.83 and Other malaise R53.81 [facility] ([address]) [address] [place] [phone] 03/28/2024 Chris Win Morbid (severe) obesity due to excess calories E66.01 ; Chronic fatigue, unspecified R53.82 ; Other fatigue R53.83 and Other malaise R53.81 [facility] ([address]) [address] [place] [phone] 03/28/2024 Chris Win [facility] ([address]) [address] [place] [phone] 04/11/2024 Chris Win Morbid (severe) obesity due to excess calories E66.01 ; Chronic fatigue, unspecified R53.82 ; Other fatigue R53.83 and Other malaise R53.81 [facility] ([address]) [address] [place] [address] 04/18/2024 Chris Win Morbid (severe) obesity due to excess calories E66.01 ; Chronic fatigue, unspecified R53.82 ; Other fatigue R53.83 and Other malaise R53.81 [facility] [place] ([address]) [address] [place] [phone] 04/25/2024 Chris Win Morbid (severe) obesity due to excess calories E66.01 ; Chronic fatigue, unspecified R53.82 ; Other fatigue R53.83 and Other malaise R53.81 [facility] ([address]) [address] [place] [address] 05/02/2024 Chris Win Morbid (severe) obesity due to excess calories E66.01 ; Chronic fatigue, unspecified R53.82 ; Other fatigue R53.83 and Other malaise R53.81 [facility] ([address]) [address] [place] [address] 05/09/2024 Chris Win Morbid (severe) obesity due to excess calories E66.01 ; Chronic fatigue, unspecified R53.82 ; Other fatigue R53.83 and Other malaise R53.81 [facility] ([address]) [address] [place] [phone] 05/16/2024 Chris Win Morbid (severe) obesity due to excess calories E66.01 ; Chronic fatigue, unspecified R53.82 ; Other fatigue R53.83 and Other malaise R53.81 [facility] ([address]) [address] [place] [phone] 05/23/2024 Chris Win Morbid (severe) obesity due to excess calories E66.01 ; Chronic fatigue, unspecified R53.82 ; Other fatigue R53.83 and Other malaise R53.81 [facility] ([address]) [address] [place] [phone] 05/30/2024 Chris Win Morbid (severe) obesity due to excess calories E66.01 ; Chronic fatigue, unspecified R53.82 ; Other fatigue R53.83 and Other malaise R53.81 [facility] ([address]) [address] [place] [phone] 06/06/2024 Chris Bee Morbid (severe) obesity due to excess calories E66.01 ; Chronic fatigue, unspecified R53.82 ; Other fatigue R53.83 and Other malaise R53.81 [facility] ([address]) [address] [place] [phone] 09/05/2024 Chris Bee Morbid (severe) obesity due to excess calories E66.01 and Chronic fatigue, unspecified R53.82 Assessments Encounter Date Diagnosis (ICD Code) Assessment Notes Treatment Notes Treatment Clinical Notes Section Notes 03/14/2024 Morbid (severe) obesity due to excess [...] 05/09/2024 Chronic fatigue, unspecified (ICD-10 - R53.82) 07/26/2024 [...] 09/05/2024 Chronic fatigue, unspecified (ICD-10 - R53.82) 07/04/2024 Morbid (severe) obesity due to excess calories (ICD-10 - E66.01) 07/04/2024 Chronic fatigue, unspecified (ICD-10 - R53.82) 06/20/2024 Morbid (severe) obesity due to excess calories (ICD-10 - E66.01) 06/20/2024 Chronic fatigue, unspecified (ICD-10 - R53.82) 06/06/2024 Morbid (severe) obesity due to excess calories (ICD-10 - E66.01) 05/16/2024 Morbid (severe) obesity due to excess calories (ICD-10 - E66.01) 05/16/2024 Chronic fatigue, unspecified (ICD-10 - R53.82) 05/23/2024 Morbid (severe) obesity due to excess calories (ICD-10 - E66.01) 05/23/2024 Chronic fatigue, unspecified (ICD-10 - R53.82) 05/30/2024 Morbid (severe) obesity due to excess calories (ICD-10 - E66.01) 05/30/2024 Chronic fatigue, unspecified (ICD-10 - R53.82) 06/06/2024 Chronic fatigue, unspecified (ICD-10 - R53.82) 06/06/2024 [...] R53.83) 03/14/2024 Other fatigue (ICD-10 - R53.83) 03/14/2024 Other malaise (ICD-10 - R53.81) 03/21/2024 Other malaise (ICD-10 - R53.81) 03/28/2024 Other malaise (ICD-10 - R53.81) 04/11/2024 Other malaise (ICD-10 - R53.81) 04/18/2024 Other malaise (ICD-10 - R53.81) 04/25/2024 Other malaise (ICD-10 - R53.81) 05/02/2024 Other malaise (ICD-10 - R53.81) 05/09/2024 Other malaise (ICD-10 - R53.81) 06/06/2024 Other malaise (ICD-10 - R53.81) 05/16/2024 Other malaise (ICD-10 - R53.81) 05/23/2024 Other malaise (ICD-10 - R53.81) 05/30/2024 Other malaise (ICD-10 - R53.81) Plan Of Treatment No Information
--- OUTSIDE RECORDS SUMMARY | 2025-03-11 13:57 | XMS_ITS | Continuity of Care Document ---
Author Organization [facility] Address [address] [place] [address] Phone Care Team Providers Care Reliability Technologist Name Role Phone Liana Ortiz Unavailable Advance Directives Directive Yes / No Effective Date File Name No Information Encounters Encounter Description Practice Location Reason(s) For Visit Diagnoses Date Provider Providers Copied on Encounter [facility], [address], [place], [place], [id number], [place] tel:[phone] [facility] No Information Sep-0 9-200 5 Diana Gaines. [address] , [address], [place], [address], [place]. tel:[phone] Referring Provider: Puja Boucher MD, [address] [place] [address], [address]. tel:[phone] Family History Family Member Type Diagnosis Age At Onset No Information Payers Payer name Insurance type Covered republican ID Authoriza tion(s) Medicaid [facility] [id number] Social History Type Description Quantity Date Captured [...]
--- OUTSIDE RECORDS SUMMARY | 2025-03-11 13:57 | XMS_ITS | Clinical Summary ---
Author Organization [facility] Address [address] [place] [address] Care Team Providers Care Board Hammer Operator Name Role Phone Jalil Davila MD Primary Care Provider [phone] Source Comments [facility],non-owned Affiliates and Associated Physician Practices is amultiple site organization consisting of ambulatory clinics and hospital sitesin [place], [place], [place] and [place]. This disclosure is being madepursuant to the Care Everywhere program and may not contain all information available regarding this patient. Last updated 18.[facility] Allergies No known active allergies Medications * [...] AM CDT Legal Sex Female 6:23 AM AMBULATORY CARE Gender Identity Female 03/08/2023 9:55 AM CDT [...] 10:02 AM CDT Height 157.5 cm (5' 2) 03/08/2023 10:02 AM CDT Body Mass Index [...] this topic Insurance ANTHEM ANTHEM Care Teams Board Hammer Operator Relationship Specialty Start Date End Date Jalil Davila MD [address] [place] [address] PCP - General 11/03/22
--- OUTSIDE RECORDS SUMMARY | 2025-03-11 13:57 | XMS_ITS | Data Portability ---
Author Organization [facility] [employer] , [facility] Address [address] [place] [address] Care Team Providers Care Plastic Printer Name Role Phone [facility] Chemotherapist Assessment No assessment recorded. Plan of Treatment Reminders Order Date Submit Date Provider Last Modified By Organization Details Last Modified Time Details Appointments None recorded. Lab HPV E6+E7 mRNA, qualitative PCR, cervix 2024 025 INMAN Negrito, [address] [place], [address], 5 14:52:56 pap, LB 2024 025 [employer] [facility], [address] [place], [address], 5 12:42:03 HPV E6+E7 mRNA, qualitative PCR, cervix 2023 024 INMAN Negrito, [address] [place], [address], 4 09:23:45 pap, LB 2023 024 [employer] [facility], [address] [place], [address], 4 12:08:43 HPV E6+E7 mRNA, qualitative PCR, cervix 2022 023 [email or web address] [facility], [address] [place], [address], 3 17:30:07 pap, LB 2022 023 [facility], [address] [facility], [place], [address], 3 23:39:03 pap, LB 2021 022 [facility], [address] [facility], [place], [address], 2 12:21:01 HPV E6+E7 mRNA, qualitative PCR, cervix 2021 022 [facility] Negrito, [address] [place], [address], 2 15:02:59 Referral None recorded. Procedures None recorded. Surgeries None recorded. Imaging MAMMO, screening, digital, bilateral 2024 025 [facility] (Imaging), [address] [place] [address], [phone], 5 04:05:20 MAMMO, screening, digital, bilateral [address] (Imaging), [address] [place] [address] [place] [address], [phone], 4 11:33:33 MAMMO, screening, digital, bilateral 2021 022 [email or web address] Not available 2 13:22:22 Medication Orders None recorded. Patient TargetsNo targets recorded. Patient Instructions Encounter Date Encounter Id Patient Instructions Last Modified By Organization Details Last Modified Time 11/24/2021 [id number] eating healthy foods: care instructions Not available 11/24/2021 15:35:25 weight managemen t education Not available 11/24/2021 15:35:25 mammogram: about this test Not available 11/24/2021 15:35:25 12/21/2022 [id number] Patient Health Questionnaire-9* ckabat Not available 12/22/2022 14:53:40 12/27/2023 [id number] eating healthy foods: care instructions Not available 12/27/2023 12:22:48 general health care education Not available 12/27/2023 12:22:48 body mass index: care instructions Not available 12/27/2023 12:22:48 mammogram: about this test Not available 12/27/2023 12:22:48 12/25/2024 [id number] Patient Health Questionnaire-9* kbritsch Not available 12/25/2024 [...] l cervi mera cytol ogy. Not Available [facility] [address] [place], [address], 11/26/2021 15:02:59 11/24/19 22 11/30/2021 THINP REP TIS PAP clinical information: normal Infor matio n not provi ded Not Available [facility] [employer] [facility] [address] [place], [address], 11/30/2021 12:21:01 11/24/19 22 11/30/2021 THINP REP TIS PAP LMP: normal NONE GIVEN Not Available [facility] [employer] [facility] [address] [place], [address], 11/30/2021 12:21:01 11/24/19 22 11/30/2021 THINP REP TIS PAP prev. Pap: normal NONE GIVEN Not Available [address], [address], 11/30/2021 12:21:01 11/24/19 22 11/30/2021 THINP REP TIS PAP prev. BX: normal NONE GIVEN Not Available [address], [address], 11/30/2021 12:21:01 11/24/19 22 11/30/2021 THINP REP TIS PAP source: normal None given Not Available [address], [address], 11/30/2021 12:21:11/24/19 22 11/30/2021 THINP REP TIS PAP statement of adequacy: normal Satis facto ry for evalu ation . Endoc ervic al/tr ansfo rmati on zone compo nent prese nt. Age and/o r menst rual statu s not provi ded Not Available [address], [address], 11/30/2021 12:21:01 11/24/19 22 11/30/2021 THINP REP TIS PAP interpretati on/result: normal Negat ga for intra epith elial lesio n or opal prajapati . Not Available [address], [address], 11/30/2021 12:21:01 11/24/19 22 11/30/2021 THINP REP TIS PAP comment: normal This Pap test has been evalu ated with compu ter adrianne jeannette techn ology . Not Available [address], [address], 11/30/2021 12:21:01 11/24/19 22 11/30/2021 THINP REP TIS PAP cytotechnolo gist: normal MLO, CT( CP) CT scree jose locat ion: [facility] [address] [place] [address] Not Available [facility] [address] [place], [address], 11/30/2021 12:21:01 11/24/19 22 11/30/2021 THINP REP TIS PAP review cytotechnolo gist: normal LYLE, CT( CP) CT Scree jose locat ion: [id number] [place] [address] Not Available [facility] [address] [place], [address], 11/30/2021 12:21:01 11/24/19 22 11/30/2021 THINP REP [...] clini mera infor matio n. Not Available [facility] [employer] [facility] [address] [address], [place], [address], 11/30/2021 12:21:01 12/22/19 23 12/23/2022 HPV HIGH [...] l cervi mera cytol ogy. Not Available [facility] [address] [place], [address], 12/23/2022 14:48:32 12/22/19 23 12/28/2022 THINP REP TIS PAP clinical information: normal None given Not Available [address], [address], 12/28/2022 23:39:03 12/22/19 23 12/28/2022 THINP REP TIS PAP LMP: normal NONE GIVEN Not Available [address], [address], 12/28/2022 23:39:03 12/22/19 23 12/28/2022 THINP REP TIS PAP prev. Pap: normal NONE GIVEN Not Available [address], [address], 12/28/2022 23:39:03 12/22/19 23 12/28/2022 THINP REP TIS PAP prev. BX: normal NONE GIVEN Not Available [address], [address], 12/28/2022 23:39:03 12/22/19 23 12/28/2022 THINP REP TIS PAP source: normal Cervi x Not Available [address], [address], 12/28/2022 23:39:03 12/22/19 23 12/28/2022 THINP REP TIS PAP statement of adequacy: normal Satis facto ry for evalu ation . Endoc ervic al/tr ansfo rmati on zone compo nent prese nt. Age and/o r menst rual statu s not provi ded Not Available [address], [address], 12/28/2022 23:39:03 12/22/19 23 12/28/2022 THINP REP TIS PAP interpretati on/result: normal Negat ga for intra epith elial lesio n or malcody prajapati . Not Available [address], [place], [address], 12/28/2022 23:39:03 12/22/19 23 12/28/2022 THINP REP TIS PAP comment: normal This Pap test has been evalu ated with yoshi gill techn ology . Not Available [facility] [place] [address] [place], [address], 12/28/2022 23:39:03 12/22/19 23 12/28/2022 THINP REP TIS PAP cytotechnolo gist: normal LM, CT( CP) CT scree jose locat ion: [facility] [place] [address] [place] [address] Not Available [facility] [address] [place], [address], 12/28/2022 23:39:03 12/22/19 23 12/28/2022 THINP REP [...] clini mera infor matio n. Not Available [facility] [address] [address] , [place], [address], 12/28/2022 23:39:03 12/27/19 24 12/28/2023 HPV HIGH [...] l cervi mera cytol ogy. Not Available [facility] [address] [place], [address], 12/29/2023 09:23:45 12/27/19 24 12/30/2023 THINP REP TIS PAP clinical information: normal None given Not Available [facility] [place] [address] [place], [address], 12/30/2023 12:08:43 12/27/19 24 12/30/2023 THINP REP TIS PAP LMP: normal NONE GIVEN Not Available [place] [address] [place], [address], 12/30/2023 12:08:43 12/27/19 24 12/30/2023 THINP REP TIS PAP prev. Pap: normal NONE GIVEN Not Available [facility] [place] [address] [place], [address], 12/30/2023 12:08:43 12/27/19 24 12/30/2023 THINP REP TIS PAP prev. BX: normal NONE GIVEN Not Available [place] [address] [place], [address], 12/30/2023 12:08:43 12/27/19 24 12/30/2023 THINP REP TIS PAP source: normal Cervi x Not Available [facility] [place] [address] [place], [address], 12/30/2023 12:08:43 12/27/19 24 12/30/2023 THINP REP TIS PAP statement of adequacy: normal Satis facto ry for evalu ation . Endoc ervic al/tr ansfo rmati on zone compo nent prese nt. Age and/o r menst rual statu s not provi ded Not Available [place] [address] [place], [address], 12/30/2023 12:08:43 12/27/19 24 12/30/2023 THINP REP TIS PAP interpretati on/result: normal Cytol ogy Resul ts: Negat ga for intra epith elial lesio n or opal prajapati . Not Available [facility] [place] [address] [place], [address], 12/30/2023 12:08:43 12/27/19 24 12/30/2023 THINP REP TIS PAP comment: normal This Pap test has been evalu ated with compu ter adrianne machado techn ology . Not Available [place] [address] [place], [address], 12/30/2023 12:08:43 12/27/19 24 12/30/2023 THINP REP TIS PAP cytotechnolo gist: normal MATT, CT( CP) CT scree jose locat ion: [place] [address] [place] [address] Not Available [place] [address] [place], [address], 12/30/2023 12:08:43 12/27/19 24 12/30/2023 THINP REP [...] clini mera infor matio n. Not Available [place] [address] [place], [address], 12/30/2023 12:08:43 12/26/1912/26/2024 HPV HIGH RISK HPV [...] l cervi mera cytol ogy. Not Available [facility] [address] [place], [address], 12/26/2024 14:52:56 12/26/19 25 12/28/2024 THINP REP TIS PAP clinical information: normal None given Not Available [address], [address], 12/28/2024 12:42:03 12/26/19 25 12/28/2024 THINP REP TIS PAP LMP: normal NONE GIVEN Not Available [address], [address], 12/28/2024 12:42:03 12/26/19 25 12/28/2024 THINP REP TIS PAP prev. Pap: normal NONE GIVEN Not Available [address], [address], 12/28/2024 12:42:03 12/26/19 25 12/28/2024 THINP REP TIS PAP prev. BX: normal NONE GIVEN Not Available [address], [address], 12/28/2024 12:42:03 12/26/19 25 12/28/2024 THINP REP TIS PAP source: normal Cervi x Not Available [address] [place], [address], 12/28/2024 12:42:03 12/26/19 25 12/28/2024 THINP REP TIS PAP statement of adequacy: normal Satis facto ry for evalu ation . Endoc ervic al/tr ansfo rmati on zone compo nent prese nt. Age and/o r menst rual statu s not provi ded Not Available [address] [place], [address], 12/28/2024 12:42:03 12/26/19 25 12/28/2024 THINP REP TIS PAP interpretati on/result: normal Cytol ogy Resul ts: Negat ga for intra epith elial lesio n or malig alo . Not Available [facility] [address] [address], [place], [address], 12/28/2024 12:42:03 12/26/19 25 12/28/2024 THINP REP TIS PAP comment: normal This Pap test has been evalu ated with compu gill techn ology . Not Available [facility] [address] [place], [address], 12/28/2024 12:42:03 12/26/19 25 12/28/2024 THINP REP TIS PAP cytotechnolo gist: normal LYLE, CT( CP) CT Scree jose locat ion: [address] [place] [address] Not Available [facility] [address] [address], [place], [address], 12/28/2024 12:42:03 12/26/19 25 12/28/2024 THINP REP TIS PAP comment EXPLA NATOR [...] clini mera infor matio n. Not Available [facility] [address] [place], [address], 12/28/2024 12:42:03 11/10/19 23 11/09/2022 MAMMO , scree jose, bilat eral No observ ation record ed. [address], [place], [address], 11/16/2022 11:25:38 12/02/19 23 12/01/2022 MAMMO , diagn ostic , digit al, unila teral No observ ation record ed. [facility] (Imaging) [address] [facility] [address], [place], [address], 12/02/2022 16:12:56 Result Notes None recorded. Problems Name Problem SNOMED Code Status Onset Date Resolution Date Notes Provider Name and Address Organization Details Recorded Time Clinical finding Completed 201710/03/2018 state, incident al; Progress : Stable Added By: Inocencia Harris Add to Current Problems : NO ProblemS tatus: Resolve Not Available [facility] 2 19:59:59 Clinical finding Completed 201608/15/2017 Encounte r for supervis ion of normal pregnanc y, unspecif ied, unspecif ied trimeste r; Progress : Stable Added By: Rachel Rose Add to Current Problems : NO ProblemS tatus: Resolve Not Available [facility] 2 19:51:57 Missed miscarri age [id number] Completed 201608/15/2017 Missed ; Progress : Stable Added By: Erika Del Toro Add to Current Problems : NO ProblemS tatus: Resolve Not Available [facility] 2 19:59:58 Antenata l care: multipar ous, older than 35 years [id number] Completed 201709/29/2018 Elderly multigra adam high risk [...] Start Date : 05/05/20 18 Not Available [facility] 2 19:59:57 Gestatio n period, 29 weeks 81628739 Completed 201709/29/2018 29 weeks gestatio n of pregnanc y; Progress : Stable Added By: Jenny Wade Add to Current Problems : NO ProblemS tatus: Resolve Not Available [facility] 2 19:59:58 Hernia of abdomina l cavity 14032061 Active 2019 Unspecif ied abdomina l hernia without obstruct ion or gangrene ; Progress : Stable Added By: Tee Patel Add to Current Problems : YES ProblemS tatus: Current Not Available [facility] 2 19:59:52 Gestatio n period, 33 weeks 37682170 Completed 201711/27/2018 33 weeks gestatio n of pregnanc y; Progress : Stable Added By: Marija Jerez Add to Current Problems : NO ProblemS tatus: Resolve Not Available [facility] 2 19:51:58 Gestatio nal diabetes mellitus 00428124 Completed 201711/27/2018 Gestatio nal diabetes mellitus in pregnanc y, diet controll ed; Progress : Stable Added By: Jonelle Rogel Add to Current Problems : NO ProblemS tatus: Resolve; Start Date : 09/05/20 18 Gesta tional diabetes mellitus in pregnanc y, insulin controll ed; Progress : Stable Added By: Inocencia Harris Add to Current Problems : NO ProblemS tatus: Resolve Not Available [facility] 2 19:59:59 Gestatio n period, 10 weeks 99400835 Completed 201605/08/2018 10 weeks gestatio n of pregnanc y; Progress : Stable Added By: Amber Henry Add to Current Problems : NO ProblemS tatus: Resolve Not Available [facility] 2 19:51:57 Abnormal glucose toleranc e in mother complica ting pregnanc y, childbir th AND/OR puerperi 81124290 Completed 201605/16/2017 Abnormal glucose complica ting pregnanc y; Progress : Stable Added By: Jo Bolton Add to Current Problems : NO ProblemS tatus: Resolve Not Available [facility] 2 19:59:53 Procedur e on genitour inary system Completed 201811/27/2018 Encounte r for surgical aftercar e followin g surgery on the genitour inary system; Progress : Stable Added By: Jenny Wade Add to Current Problems : NO ProblemS tatus: Resolve Not Available [facility] 2 19:59:54 Postoper ative care Completed 201811/27/2018 Encounte r for surgical aftercar e followin g surgery on the genitour inary system; Progress : Stable Added By: Jenny Wade Add to Current Problems : NO ProblemS tatus: Resolve Not Available [facility] 2 19:59:54 Body mass index 30+ - obesity 073859246 Active 2018 Body mass index (BMI) 34.0-34. 9, adult; Progress : Stable Added By: Marija Jeerz Add to Current Problems : YES ProblemS tatus: Current Not Available [facility] 2 19:59:55 Maternal obesity complica ting pregnanc y, childbir th and the puerperi um, antepart um 84659694239 7 Completed 201709/29/2018 Obesity complica ting pregnanc y, childbir th, or the puerperi um, antepart um conditio n or complica tion; Progress : Stable Added By: Marquita Pantoja Add to Current Problems : NO ProblemS tatus: Resolve Not Available [facility] 2 19:59:51 Urinary tract infectio us disease 62336413 Completed 201707/17/2018 Test of Cure; Location : None Progress : Stable Added By: Inocencia Harris Add to Current Problems : YES ProblemS tatus: Resolve Urinary tract infectio n, site not specifie d; Progress : Stable Added By: Inocencia Harris Add to Current Problems : NO ProblemS tatus: Resolve Not Available [facility] 2 19:59:52 Gestatio n period, 35 weeks 08737838 Completed 201811/27/2018 35 weeks gestatio n of pregnanc y; Progress : Stable Added By: Inocencia Harris Add to Current Problems : NO ProblemS tatus: Resolve Not Available [facility] 2 19:59:57 Gestatio n period, 32 weeks 9636981 Completed 201711/27/2018 32 weeks gestatio n of pregnanc y; Progress : Stable Added By: Jonelle Rogel Add to Current Problems : NO ProblemS tatus: Resolve Not Available [facility] 2 20:00:00 Oligohyd ramnios Completed 201811/27/2018 Oligohyd ramnios, third trimeste r, not applicab le or unspecif ied; Progress : Stable Added By: Elvis Colon Add to Current Problems : NO ProblemS tatus: Resolve Not Available [facility] 2 20:00:01 Uses intraute rine contrace ption 467433163 Completed 201509/29/2018 Patient with intraute rine contrace ptive device (IUD); Location : None Severity : Moderate Progress : Stable Added By: Rashida Pichardo Add to Current Problems : YES ProblemS tatus: Current Patient with intraute rine contrace ptive device (IUD); Severity : Moderate Progress : Stable Added By: Rashida Pichardo Add to Current Problems : NO ProblemS tatus: Resolve Not Available [facility] 1 19:36:05 Abdomina l pain 00736554 Completed 201707/17/2018 Abdomina l pain, unspecif ied; Progress : Stable Added By: Nadira Obrien Add to Current Problems : NO ProblemS tatus: Resolve Unspecif ied abdomina l pain; Progress : Stable Added By: Nadira Obrien Add to Current Problems : NO ProblemS tatus: Resolve Not Available [facility] 2 19:59:57 Gestatio n period, 31 weeks 83970954 Completed 201709/29/2018 31 weeks gestatio n of [...] : NO ProblemS tatus: Resolve Not Available [facility] 1 19:36:07 Miscarri age 56136957 Completed 201608/15/2017 Complete or unspecif ied spontane ous without complica tion; Progress : Stable Added By: Marija Jerez Add to Current Problems : NO ProblemS tatus: Resolve Miscarri age before 22 weeks gestatio n; Location : None Progress : Stable Added By: Marija Jerez Add to Current Problems : YES ProblemS tatus: Resolve Not Available [facility] 2 19:59:53 Gestatio n period, 27 weeks 91120500 Completed 201709/29/2018 27 weeks gestatio n of pregnanc y; Progress : Stable Added By: Alexus Berg Add to Current Problems : NO ProblemS tatus: Resolve Not Available [facility] 2 20:00:01 Threaten ed miscarri age 51399820 Completed 201608/15/2017 Threaten ed ; Progress : Stable Added By: Marquita Pantoja Add to Current Problems : NO ProblemS tatus: Resolve Not Available [facility] 2 19:51:[address] Concept Completed 201711/27/2018 [...] : NO ProblemS tatus: Resolve Not Available [facility] 2 19:59:55 Clinical finding Completed 201510/03/2018 Presence of (intraut erine) contrace ptive device; Progress : Stable Added By: Rashida Pichardo Add to Current Problems : NO ProblemS tatus: Resolve Not Available [facility] 2 19:59:53 Gestatio n period, 34 weeks 98152417 Completed 201811/27/2018 34 weeks gestatio n of pregnanc y; Progress : Stable Added By: Jenny Wade Add to Current Problems : NO ProblemS tatus: Resolve Not Available [facility] 2 19:59:59 Normal pregnanc y in multigra adam 64071904359 4106 Completed 201710/03/2018 Encounte r for supervis [...] : NO ProblemS tatus: Resolve Not Available [facility] 2 19:59:52 Situatio n with explicit context Completed 201710/03/2018 Supervis ion of pregnanc y with other poor reproduc tive or obstetri c history, first trimeste r; Progress : Stable Added By: Marquita Pantoja Add to Current Problems : NO ProblemS tatus: Resolve Not Available [facility] 2 19:59:54 Situatio n with explicit context Completed 201710/03/2018 Supervis ion of pregnanc y with other poor reproduc tive or obstetri c history, unspecif ied trimeste r; Progress : Stable Added By: Marquita Pantoja Add to Current Problems : NO ProblemS tatus: Resolve Not Available [facility] 2 19:59:56 Gestatio n period, 30 weeks 47721732 Completed 201709/29/2018 30 weeks gestatio n of pregnanc y; Progress : Stable Added By: Alexus Berg Add to Current Problems : NO ProblemS tatus: Resolve Not Available [facility] 2 19:59:50 Glucose toleranc e test during pregnanc y - baby not yet delivere d outside referenc e range 881749982 Completed 201605/16/2017 Abnormal Maternal Glucose Toleranc e; Progress : Stable Added By: Jo Bolton Add to Current Problems : NO ProblemS tatus: Resolve Not Available [facility] 2 19:59:50 Antenata l screenin g Completed [...] : NO ProblemS tatus: Resolve Not Available [facility] 2 19:59:56 IUCD status 469080865 Active 2015 Patient with intraute rine contrace ptive device (IUD); Location : None Progress : Stable Added By: Rashida Pichardo Add to Current Problems : YES ProblemS tatus: Current Not Available [facility] 2 19:59:56 Problem Notes None recorded. Procedures Surgical History Date Name Laterality Status Provider Name and Address Organization Details Recorded Time 12/26/19 25 Date of Last Pap Smear completed Digna Jacinto MD [address] [place], [address], [facility] 01/02/2025 19:24:17 01/31/20 24 Most Recent [facility]ammogram [facility] 12/25/2024 10:02:33 10/10/19 23 Date of Last Colonoscopy completed [facility] 12/25/2024 10:07:38 exploratory laparotomy completed [facility] 11/11/2021 00:34:10 section completed [facility] 11/11/2021 00:34:26 C Section completed [facility]rachita Dexter [facility] 11/24/2021 14:32:08 Imaging Results None recorded. Procedure Notes None recorded. Medical Equipment None Reported. Allergies Allergen ID Allergen Name Allergen Category Reaction Reaction Severity Criticality Documentation Date Start Date Code Code System Note Provider Name and Address Organization Details Recorded Time 021066 house dust allergeni c extract environme nt,medica tion Not available Not available Not available 12/27/2023 13705 9 RxNorm [facility], [facility] [employer] IV 4 11:30:44 489134 cow milk allergeni c extract food,medi cation Not available Not available Not available 12/27/2023 84846 5 RxNorm Mesha [facility], [facility] IV 5 10:04:35 496292 lactose food,medi cation Not available Not available Not available 12/25/2024 6211 RxNorm Mesha [facility], [facility] [facility] IV 5 10:04:31 Medications Name Sig Start [...] days 06/05 completed Keflex 500mg Capsules RxNorm: 210509 Allow Substitu tion: True Refill Denied: No [...] completed Phenterm ine HCl 37.5mg Tablets RxNorm: 919621 Allow Substitu tion: True Refill Denied: No Refill DateOccu rred: 11/27/19 19 Not Available Not Available Not Available Zantac 75 mg tablet Take 1 tablet po bid 12/04 completed Zantac 75 75mg Tablet RxNorm: 780185 Allow Substitu tion: True Refill Denied: No Not Available Not Available Not Available doxycycli ne monohydra te 100 mg tablet 1 po bid x 7 days and may have tab/caps ule or any type 02/23 completed Doxycycl ine Monohydr ate 100mg Tablet RxNorm: 7836672 Allow Substitu tion: True Refill Denied: No [...] 12/26 completed Furosemi de 20mg Tablets RxNorm: 422147 Allow Substitu tion: True Refill Denied: No [...] active Mirena 52mg Intraute rine System RxNorm: 346007 Allow Substitu tion: True Refill Denied: No [...] Address Organization Details Last Updated DateTime 2 [address]4410.4 1 g 37.2 kg/m2 157.48 cm 97.1 [degF] 130 mm[Hg] 88 mm[Hg] Catrachita Dexter [facility] 2 14:44:05 Date Recorded Body weight Body mass index (BMI) Body height Systolic blood pressure Diastolic blood pressure Provider Name and Address Organization Details Last Updated DateTime 12/21/2022 11249.2 5 g 37.1 kg/m2 157.48 cm 110 mm[Hg] 70 mm[Hg] Bea Quintero [facility] 3 17:19:31 Date Recorded Body height Body mass index (BMI) Body weight Systolic blood pressure Diastolic blood pressure Provider Name and Address Organization Details Last Updated DateTime 12/25/2024 157.48 cm 33.9 kg/m2 52698.74 g 116 mm[Hg] 78 mm[Hg] Mesha Kimble [place] [employer] [facility] 5 10:10:40 Date Recorded Body weight Body mass index (BMI) Body height Systolic blood pressure Diastolic blood pressure Provider Name and Address Organization Details Last Updated DateTime 12/27/2023 61066.8 1 g 33.3 kg/m2 157.48 cm 110 mm[Hg] 76 mm[Hg] Bea Mary Graceeunicegisella [facility] IV 4 11:38:42 Social History Question Answer Notes LastModified by Organizat ion Details LastModified Time Tobacco Smoking Status Never Smoker Catrachita Dexter null, [facility] IV 11/24/2021 14:32:02 If You Are , What Was Your Level Of Alcohol Consumption Prior To ? None Information not available 12/25/2024 How Many Years Have You Consumed Alcohol? 24 Information not available 12/25/2024 Are You Blind Or Do You Have Difficulty Seeing? No Information not available 11/24/2021 Are You Deaf Or Do You Have Serious Difficulty Hearing? No Information not available 11/24/2021 What Type Of Diet Are You Following? REGULAR Information not available 11/24/2021 How Many Children Do You Have? 4 Information not available 12/21/2022 What Is Your Relationship Status? Information not available 11/11/2021 Are You Sexually Active? Yes Information not available 11/11/2021 What Types Of Sporting Activities Do You Participate In? Volleyball Information not available 12/27/2023 Sex: Unknown Functional Status Question Answer Note LastModified by Organizat ion Details LastModified Time Do you use any illicit or recreational drugs? No Information not available 12/21/2022 What is your level of alcohol consumption? Occasional Information not available 11/24/2021 Are you currently employed? No Information not available 12/27/2023 Do you or have you ever used e-cigarettes or vape? Never used electronic cigarettes Information not available 11/24/2021 What is your exercise level? Occasional Information [...] SNOMED-CT Code Diagnosis ICD10 Code Diagnosis Note [id number] Digna Jacinto MD [facility] [address] [address] 11/24/2021 14:01:58 11/24/2021 15:53:17 Gynecologic examination 86013804 Z01.419 Screening for malignant neoplasm of cervix 323745624 Z12.4 Screening for malignant neoplasm of breast 779939088 Z12.39 discussed getting first mammogram. Pt to call either [facility] or [facility] to get this scheduled. Depression screening 171 494684 Z13.[address] ess incontinence 23456242 N39.3 discussed [id number] Digna Jacinto MD [address] [phone] 12/21/2022 16:04:30 12/21/2022 21:06:10 Gynecologic examination 67579110 Z01.[address] operator exam. discussed rectus diastasis and following with plastic surgery. Trying to lose weight in preparatio n for surgery. Screening for malignant neoplasm of cervix 088713612 Z12.4 Depression screening 171 849815 Z13.31 not depressed IUD check 813089411 Z30. [address]. Discussed effectiven ess is good for 7 yr but that sometimes periods may resume as it gets closer to 5 yr - may consider changing next yr prn. She does not desire any further childbeari ng [id number] Digna Jacinto MD [address] [address] 12/27/2023 11:19:12 12/27/2023 12:23:29 Gynecologic examination 65537288 Z01.[address] operator exam. discussed rectus diastasis and following with plastic surgery. Trying to lose weight in preparatio n for surgery. Screening for malignant neoplasm of cervix 688915382 Z12.4 Screening for malignant neoplasm of breast 564206502 Z12.39 pt to schedule her annual mmg [id number] Digna Jacinto MD [address] [address] 12/25/2024 10:00:25 12/25/2024 10:30:35 Gynecologic examination 84992080 Z01.[address] operator exam. discussed rectus diastasis and following with plastic surgery. Trying to lose weight in preparatio n for surgery.di scussed her weight loss and cost of compounded med. informed about the [facility] program where she can get med for lower costWill check into this for pt Screening for malignant neoplasm of cervix 648629498 Z12.4 Screening for malignant neoplasm of breast 497403114 Z12.39 pt to schedule her annual mmg Depression screening 171 357134 Z13.31 not depressed Health Concerns Section Related Observation LastModified by Organization Detai ls LastModified Time None Recorded Concern Status LastModified by Organization Details LastModified Time None Recorded Advance Directives Directive None Recorded Payers Insurance Date Sequence Insurance Name Policy Number Policy Bailon Covered Member ID Bailon Member ID Guarantor Name 12/13/2024 1 [facility] [id number] 1 Theodore Toño [id number] Aleshia Lundberg 12/22/[address] [facility] [id number] Aleshia Lundberg [id number] Aleshia Lundberg Notes Date Note Type Note Provider [...] of the urine leakage. Digna Jacinto MD [address] [facility], [place], [address], [facility] [employer] 11/24/2021 15:51:58 12/21/2022 text/html Aleshia is being [...] but it was nl. Digna Jacinto MD [address] [place] [address], [phone], [facility] [employer] IV 12/21/2022 21:05:58 12/27/2023 text/html Patient is [...] has lost 20 p Digna Jacinto MD [address] [place] [address], [phone], [facility] [employer] IV 12/27/2023 12:23:16 12/25/2024 text/html Aleshia presents [employer]. Last pap:. LMP: . Pt is currently using Mirena for contraception. Last mammogram: 12-01-2022. Last colon cancer screenin. Pt has questions on Perimenopause. Pt voices no other concerns. PHQ is 0.She is losing weight in order to get abdominoplasty, needs to be BMI 30 or underGoing to a weight loss clinic in [place], [place]600 monthly for compounded med. was on Tizerpatide up to 8 mg but plateaued.then they switched her to semaglutide, but did not lose more so stopped Digna Jacinto MD [facility], [place], [address], [facility] [employer] IV 12/25/2024 10:30:11 OBGyn Episode Ob Episode Information Episode Created Date Number of Fetuses Patient Bloodtype Patient rh Status Prepregnancy Weight lbs Domestic Partner Domestic Partner Phone Father Name Psychiatry Resident Status 12/25/19 22 1 CLOSED Fetus Data First Name Last Name Admitted to NICU Weight (g) Sex Living Outcome Pediatric Complications Fetus ID Race Codes Race Delivery Type Demise [id number] Dani Calculation Initial Dani Date Initial Exam [...] Domestic Partner Domestic Partner Phone Father Name Psychiatry Resident Status 12/25/19 1 DELETED Dani Calculation Initial [...] Domestic Partner Domestic Partner Phone Father Name Psychiatry Resident Status 12/25/19 1 CLOSED Fetus Data First Name Last Name Admitted to NICU Weight (g) Sex Living Outcome Pediatric Complications Fetus ID Race Codes Race Delivery Type 2352.78 1704 M [id number] Dani Calculation Initial Dani Date Initial Exam [...] Domestic Partner Domestic Partner Phone Father Name Psychiatry Resident Status 12/25/19 22 1 CLOSED Fetus Data First Name Last Name Admitted to NICU Weight (g) Sex Living Outcome Pediatric Complications Fetus ID Race Codes Race Delivery Type 2438.05 7 M [id number] Dani Calculation Initial Dani Date Initial Exam [...] Domestic Partner Domestic Partner Phone Father Name Psychiatry Resident Status 12/25/19 22 1 CLOSED Fetus Data First Name Last Name Admitted to NICU Weight (g) Sex Living Outcome Pediatric Complications Fetus ID Race Codes Race Delivery Type 3259.96 5704 F Full Term [id number] Dani Calculation Initial Dani Date Initial Exam [...] Domestic Partner Domestic Partner Phone Father Name Psychiatry Resident Status 12/25/19 22 1 DELETED Dani Calculation [...] Domestic Partner Domestic Partner Phone Father Name Psychiatry Resident Status 12/25/19 22 1 CLOSED Fetus Data First Name Last Name Admitted to NICU Weight (g) Sex Living Outcome Pediatric Complications Fetus ID Race Codes Race Delivery Type 1615.69 4704 M [id number] Dani Calculation Initial Dani Date Initial Exam [...]
--- OUTSIDE RECORDS SUMMARY | 2025-03-11 13:57 | XMS_ITS ---
Author Organization [facility] [employer] ([address]) Address [address] [place] [phone] Care Team Providers Care Food Service Manager Name Role Phone Rohit Chris Unavailable [phone] REASON FOR VISIT [facility], on tirzepatide, reports better appetite suppression over the last 2 weeks, no side effects., Desired weight loss: 30 lbs, -2.8 lbs since last visit (2 weeks ago), -8 lbs total, No history MTC or MEN2 or pancreatitis, Concerned about future DM and OA Encounters Encounter Location Date Provider Diagnosis [facility] [employer] [facility] ([address]) [address] [place] [address] 09/19/2024 Chris Bee Morbid (severe) obesity due [...] Dose Administered: 6 mg Route: SQ Location: [facility] Frequency: weekly Lot Number/Expiration: Medication Source: [employer]unding Adverse Reaction: None Progress Notes * Aleshia LUNDBERGDOB: [birth year] (45 yo F)Acc No.[id number]:09/19/2024 Weight Loss Patient: Aleshia CASAREZ Provider: Jcarlos Bee MD :1980 A ge:44 Y S ex:Female Date:09/19/2024 Address:[facility] [address] , [place] [address] Subjective: * Chief Complaints: * 1 . [...] Information: * Visit Code: * Procedure Codes: 81917 Quell - Weekly (tirzepatide) Tier 2. * Electronic signature of Rickie Bee MD, FAAAAI on 03/11/2025 at 01:56 PM CDT Sign off status: Pending * Provider: Jcarlos Bee MD Date: 1 11/20/2023 Generated for Printi ng/Todd/eTransmitting on: 0 03/11/2025 01:56 PM CDT
== END 2025-03-11 13:41 | disposition home or self-care (01) ==
PROVIDERS: PCP Family Medicine; Visit Provider Family Medicine
DX: R92.8 Other abnormal and inconclusive findings on diagnostic imaging of breast (principal)
CPT/HCPCS: 77061; 77065; G0279